=== PATIENT | male | born 1950 | race Caucasian/White ===

== ENCOUNTER 2020-04-21 12:46 | Inpatient (IN) | payer MEDICARE, SELFPAY ==
[2020-04-21] VITALS (15 sets, daily range): BP systolic 137–183; BP diastolic 72–94; PULSE 74–89; RESP 11–38; TEMP 36.6–37.2; O2SAT 95–100; BMI 27.9; BMI 28.5
--- NOTE | 2020-04-21 12:44 | DI.RAD.S_ITS ---
PROCEDURE: XR HIP W PEL IF DONE LT 2V INDICATIONS: trauma TECHNIQUE: 2 views of the hip were acquired. COMPARISON: None. FINDINGS: The left hip is not adequately evaluated on this examination. However, there is suggestion of a possible fracture other involving the femoral neck or intertrochanteric region. There is no dislocation or suspicious osseous lesion evident. The remainder of the image osseous structures of the included pelvis are grossly intact. However, evaluation for pelvic fractures on a single view is severely limited and inadequate. Degenerative changes of the pelvic joints are mild to moderate in nature. The overlying soft tissues are unremarkable. IMPRESSION: Probable nondisplaced proximal left femoral fracture. CT is recommended for further evaluation. Dictated by: Luis Andino M.D. on 04/21/2020 at 12:53 Approved by: Luis Andino M.D. on 04/21/2020 at 12:55
--- NOTE | 2020-04-21 12:51 | DI.RAD.S_ITS ---
PROCEDURE: XR CHEST 1V INDICATIONS: pre-op TECHNIQUE: One view of the chest was acquired. COMPARISON: None. FINDINGS: Surgical changes and devices: None. Lungs and pleura: Elevation of the right diaphragm is evident. There is no focal pulmonary consolidation, effusion, or definite pneumothorax. Mediastinum: Mediastinal contours appear normal. The heart appears enlarged. Bones and chest wall: No suspicious bony lesions. Overlying soft tissues appear unremarkable. IMPRESSION: Cardiomegaly without overt heart failure. No definite pneumonia. Dictated by: Luis Andino M.D. on 04/21/2020 at 12:53 Approved by: Luis Andino M.D. on 04/21/2020 at 12:53
--- NOTE | 2020-04-21 12:52 | ED_ITS ---
HPI - General Adult General Chief complaint: Fall Stated complaint: GLF,left hip pain Time Seen by Provider: 04/21/20 12:52 History of Present Illness HPI narrative: 69-year-old gentleman with a history of gastrointestinal cancer currently on chemotherapy, visiting [facility] and out on a fishing Charter today fell and landed on his left hip. Difficulty in getting [place] an into the emergency room. It has been approximately 6 hours that he has been laying flat with significant pain and muscle spasm. Left leg is slightly foreshortened and internally rotated with significant amount of pain. Related Data Home Medications Medication Instructions Recorded Confirmed lisinopril 10 mg PO DAILY 04/21/20 04/21/20 oxycodone 5 mg PO Q6H PRN 04/21/20 04/21/20 regorafenib [Stivarga] 80 mg PO DAILY 04/21/20 04/21/20 Allergies Allergy/AdvReac Type Severity Reaction Status Date / Time No Known Drug Allergies Allergy Verified 04/21/20 13:01 Review of Systems Review of Systems Narrative: Pertinent positive and negative findings as per HPI Given ketamine prior to transport due to the severe pain and difficulty in getting him out of the boat in into the rig. He is appropriately sedated and review of systems is somewhat limited however augmented by his Remainder of review of systems is otherwise unremarkable for Constitutional: Fevers, chills, weakness ENT: No sore throat, neck pain, ear pain CV: Chest pain, palpitations, dyspnea on exertion Respiratory: Cough, wheeze, dyspnea GI: Nausea, vomiting, diarrhea, change in bowel habits, black or bloody stools : Dysuria, hematuria, flank pain MS: Muscle weakness, numbness, joint swelling or warmth Skin: Rashes, nonhealing lesions Neuro: Syncope, dizziness, tingling Patient History Medical History (Updated 04/21/20 @ 15:06 by Perri Ceballos MD) GI cancer (Acute) Social History Smoking Status: Never smoker Exam Narrative Exam Narrative: General: Healthy appearing, significant pain with any motion or touching the left side this pelvis or leg. Sedated from pre-hospital transport medications. HEENT: Moist mucous membranes, normal sclera with reactive pupils, Neck: No JVD, supple Respiratory: Lungs are clear to auscultation, no wheezing no rales no rhonchi. Full and symmetrical air movement Cardiac: Regular rate and rhythm no murmurs no bruits Abdomen: Soft nontender good bowel tones, no flank pain Skin: Warm and dry, no rashes Neurologic: Grossly neurologically intact with no obvious asymmetries or abnormalities Extremities: Left leg internally rotated slightly foreshortened significantly tender. Neurovascularly intact distally Psych: Cooperative, sedated Initial Vital Signs Initial Vital Signs: Vital Signs Temperature 99 F 04/21/20 13:12 Pulse Rate 89 04/21/20 13:12 Respiratory Rate 20 04/21/20 13:12 Blood Pressure 183/94 H 04/21/20 13:12 Pulse Oximetry 99 04/21/20 13:12 Course Orders Ordered: ED Orders 04/21/20 12:05 Urinalysis and Microscopic Stat 04/21/20 12:44 XR hip w pel if done LT 2V Stat 04/21/20 12:51 XR chest 1V Stat EKG-12 Lead Stat 04/21/20 13:20 Complete Blood Count AUTO DIFF Stat Comprehensive Metabolic Panel Stat Creatine Kinase Stat Troponin I Stat Discontinued Medications Hydromorphone HCl (Dilaudid) 0.5 mg IV NOW ONE Stop: 04/21/20 12:47 Last Admin: 04/21/20 13:05 Dose: 0.5 mg Documented by: DILCIA Hydromorphone HCl (Dilaudid) 1 mg IV NOW ONE Stop: 04/21/20 14:54 Last Admin: 04/21/20 15:00 Dose: 1 mg Documented by: GREG Sodium Chloride (Normal Saline 0.9%) 1,000 mls @ 1,000 mls/hr IV BOLUS ONE Stop: 04/21/20 13:45 Last Admin: 04/21/20 13:05 Dose: 1,000 mls/hr Documented by: DILCIA Vital Signs Vital signs: Vital Signs - 8 hr 04/21/20 13:12 Temperature 99 F Pulse Rate 89 Respiratory Rate 20 Blood Pressure 183/94 H Pulse Oximetry 99 Medical Decision Making Medical Records Medical records reviewed: Yes I reviewed the patient's medical records. Lab Data Lab results reviewed: Yes I reviewed the patient's lab results. Result diagrams: 04/21/20 13:20 04/21/20 13:20 Labs: Lab Results 04/21/20 04/21/20 04/21/20 Range/Units 13:20 13:20 13:20 WBC 10.9 (4.5-11.0) X10^3/uL RBC 4.07 L (4.5-5.9) X10^6/uL Hgb 10.5 L (13.5-17.5) g/dL Hct 32.5 L (41-53) % MCV 79.7 L (80-100) fL MCH 25.8 L (26-34) PG MCHC 32.3 (30-36) % RDW 17.6 H (11.6-14.8) % Plt Count 285 (150-400) X10^3/uL Neut % (Auto) 87.9 H (50-75) % Lymph % (Auto) 5.8 L (25-40) % [place] % (Auto) 5.9 (3-14) % Eos % (Auto) 0.1 L (2-4) % Baso % (Auto) 0.3 (0-2) % Neut # (Auto) 9600 H (0142-3728) /uL Lymph # (Auto) 600 L (9342-0626) /uL [place] # (Auto) 600 (0-900) /uL Eos # (Auto) 0 (0-450) /uL Baso # (Auto) 0 (0-100) /uL Sodium 136 L (137-145) mmol/L Potassium 4.1 (3.4-5.1) mmol/L Chloride 104 (98-107) mmol/L Carbon Dioxide 25 (22-32) mmol/L BUN 12 (9-20) mg/dL Creatinine 0.79 (0.66-1.25) mg/dL Estimated GFR > 60.0 (>60) mL/min BUN/Creatinine Ratio 15.2 (6-22) Glucose 119 H (80-110) mg/dL Calcium 9.5 (8.4-10.2) mg/dL Total Bilirubin 0.7 (0.2-1.3) mg/dL AST 44 (17-59) IU/L ALT 16 (<50) IU/L Alkaline Phosphatase 63 (38-126) U/L Total Creatine Kinase 518 H (55-170) U/L Troponin I (0.01-0.034) ng/mL Total Protein 7.0 (6.3-8.2) g/dL Albumin 4.0 (3.5-5.0) g/dL Globulin 3.0 (1.7-4.1) g/dL Albumin/Globulin Ratio 1.3 (1.0-2.8) 06// Range/Units 13:20 WBC (4.5-11.0) X10^3/uL RBC (4.5-5.9) X10^6/uL Hgb (13.5-17.5) g/dL Hct (41-53) % MCV (80-100) fL MCH (26-34) PG MCHC (30-36) % RDW (11.6-14.8) % Plt Count (150-400) X10^3/uL Neut % (Auto) (50-75) % Lymph % (Auto) (25-40) % [place] % (Auto) (3-14) % Eos % (Auto) (2-4) % Baso % (Auto) (0-2) % Neut # (Auto) (8355-4200) /uL Lymph # (Auto) (5917-5419) /uL [place] # (Auto) (0-900) /uL Eos # (Auto) (0-450) /uL Baso # (Auto) (0-100) /uL Sodium (137-145) mmol/L Potassium (3.4-5.1) mmol/L Chloride (98-107) mmol/L Carbon Dioxide (22-32) mmol/L BUN (9-20) mg/dL Creatinine (0.66-1.25) mg/dL Estimated GFR (>60) mL/min BUN/Creatinine Ratio (6-22) Glucose (80-110) mg/dL Calcium (8.4-10.2) mg/dL Total Bilirubin (0.2-1.3) mg/dL AST (17-59) IU/L ALT (<50) IU/L Alkaline Phosphatase (38-126) U/L Total Creatine Kinase (55-170) U/L Troponin I < 0.012 (0.01-0.034) ng/mL Total Protein (6.3-8.2) g/dL Albumin (3.5-5.0) g/dL Globulin (1.7-4.1) g/dL Albumin/Globulin Ratio (1.0-2.8) Imaging Data Chest x-ray: Radiologist's Impression: IMPRESSION: Cardiomegaly without overt heart failure. No definite pneumonia. Dictated by: Luis Andino M.D. on 04/21/2020 at 12:53 X-ray hip: Radiologist's Impression: IMPRESSION: Probable nondisplaced proximal left femoral fracture. CT is recommended for further evaluation. Dictated by: Luis Andino M.D. on 04/21/2020 at 12:53 ECG Data Attestation: I personally reviewed and interpreted this ECG as follows: Interpretation: Sinus rhythm at 76 beats per minute Lateral ST T wave abnormalities without ST elevation Normal axis, normal intervals MDM Narrative Medical decision making narrative: 69-year-old gentleman out fishing fell landing on the left hip suffering a left femoral fracture. Mildly elevated CK however creatinine is appropriate. Minor ST T wave changes on EKG without chest pain or dyspnea. Troponin is currently pending Care is reviewed with Dr. Bowden, orthopedist. She would like to taken to the operating room this afternoon. Will order rapid Covid screening. Discharge Plan Departure Patient Disposition: Admitted As Inpatient Clinical Impression: Closed hip fracture Admit Date/Time: 04/21/20 14:59 Admit Provider: Nata Terrazas
[2020-04-21] MEDS: HYDROMORPHONE 0.5 MG INJ IV (13:05)
[2020-04-21] MEDS: SODIUM CHLORIDE 0.9% 1,000 ML 1000 ML IV (13:05)
[2020-04-21 13:30] LABS: Add Manual Diff / Slide Review NO; Basophils Absolute Auto 0 /uL (0-100); Basophils Percent Auto 0.3 % (0-2); Eosinophils Absolute Auto 0 /uL (0-450); Eosinophils Percent Auto 0.1 % (2-4); Hematocrit 32.5 % (41-53); Hemoglobin 10.5 g/dL (13.5-17.5); Lymphocytes Absolute Auto 600 /uL (1100-4500); Lymphocytes Percent Auto 5.8 % (25-40); Mean Corpuscular HGB Conc 32.3 % (30-36); Mean Corpuscular Hemoglobin 25.8 PG (26-34); Mean Corpuscular Volume 79.7 fL (80-100); Monocytes Absolute Auto 600 /uL (0-900); Monocytes Percent Auto 5.9 % (3-14); Neutrophils Absolute Auto 9600 /uL (1500-7000); Neutrophils Percent Auto 87.9 % (50-75); Platelet Count 285 X10^3/uL (150-400); Red Blood Cell Count 4.07 X10^6/uL (4.5-5.9); Red Cell Distribution Width 17.6 % (11.6-14.8); White Blood Cell Count 10.9 X10^3/uL (4.5-11.0)
[2020-04-21 13:41] LABS: Creatine Kinase 518 U/L (55-170)
[2020-04-21 13:43] LABS: Alanine Aminotransferase 16 IU/L (<50); Albumin Globulin Ratio 1.3 (1.0-2.8); Alkaline Phosphatase 63 U/L (38-126); Aspartate Aminotransferase 44 IU/L (17-59); BUN Creatinine Ratio 15.2 (6-22); Bilirubin Total 0.7 mg/dL (0.2-1.3); Blood Urea Nitrogen 12 mg/dL (9-20); Calcium 9.5 mg/dL (8.4-10.2); Carbon Dioxide 25 mmol/L (22-32); Chloride 104 mmol/L (98-107); Estimated Glomerular Filt Rate > 60.0 mL/min (>60); Glucose 119 mg/dL (80-110); HEMOLYSIS < 15 (0-50); Potassium 4.1 mmol/L (3.4-5.1); Sodium 136 mmol/L (137-145)
[2020-04-21 14:41] LABS: Troponin I < 0.012 ng/mL (0.01-0.034)
[2020-04-21 14:59] LABS: Bacteria Urine None Seen; RBC Urine None Seen (0-5/HPF); WBC Urine None Seen (0-5/HPF)
[2020-04-21 15:00] LABS: Appearance Urine UA CLEAR; Bilirubin Urine UA NEGATIVE (NEGATIVE); Color Urine UA YELLOW; Glucose Urine UA NEGATIVE (Negative); Ketones Urine UA NEGATIVE (NEGATIVE); Leukocyte Esterase Urine UA NEGATIVE (NEGATIVE); Nitrite Urine UA NEGATIVE (Negative); Occult Blood Urine UA NEGATIVE (Negative); Protein Urine UA NEGATIVE (Negative); Specific Gravity Urine UA 1.015 (1.000-1.035); Urobilinogen Urine UA 0.2 E.U./dL (0.2)
[2020-04-21] MEDS: HYDROMORPHONE 1 MG INJ IV (15:00)
[2020-04-21 15:07] LABS: Culture Indicated Urine Cult Not Indicated; Urine Comments Microscopic Normal
--- NOTE | 2020-04-21 15:18 | P.HP_ITS ---
History of Present Illness History of Present Illness Date Patient Seen: 04/21/20 Time Patient Seen: 15:21 Date of Onset of Symptoms: 04/21/20 Chief complaint: GLF,left hip pain Narrative: Tyler is a 69-year-old male visiting from [place]. He was on a week- long [employer] and shellfish expedition when he fell approximately 6/630 this morning. He states despite the fall the boat continued to participate in [place] and he finally made it back to shore approximately 6 hours later. He endorses left hip pain acute onset at the time of his fall. States he has had some minor arthritic hip pain but nothing significant in the past. No previous injuries. 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 He is here on vacation with his . Right now there plan flight home is April 29. He endorses muscle spasms and pain but no other extremity injuries. Pain is better controlled with rest and medications. Pain medication in the ER has helped him significantly. Denies loss of consciousness Patient History Medical History GI cancer (Acute) Family & Social History Safety & Behavioral: Feels Safe in Current Yes Environment Been Physically Hurt or No Threatened By a Person Tobacco & Substance use: Smoking Status Never smoker alcohol intake frequency 0-2 drinks per day Substance Use Type marijuana Meds Home Medications and Allergies Home Medications Medication Instructions Recorded Confirmed Type lisinopril 10 mg PO DAILY 04/21/20 04/21/20 History oxycodone 5 mg PO Q6H PRN 04/21/20 04/21/20 History regorafenib [Stivarga] 80 mg PO DAILY 04/21/20 04/21/20 History Allergies Allergy/AdvReac Type Severity Reaction Status Date / Time No Known Drug Allergies Allergy Verified 04/21/20 13:01 Review of Systems Review of Systems Narrative: History of GIST. ROS: Yes All systems reviewed with the patient and are negative except as otherwise documented Exam Vital Signs (past 8 hours): - 04/21/20 13:12 Temperature 99 F Pulse Rate 89 Respiratory Rate 20 Blood Pressure 183/94 H Pulse Oximetry 99 Oxygen Delivery Method Room Air Narrative Exam Narrative: General exam: Alert oriented no acute distress. Lying on the stretcher. Endorses pain at the left hip. HEENT exam: Normocephalic atraumatic. Respiratory: Lungs clear to auscultation bilaterally CV exam regular rate and rhythm Abdomen obese soft Extremity exam: Moves bilateral upper extremities full range of motion no tenderness to palpation. Sensation grossly intact to light touch. 5/5 strength Right lower extremity nontender to palpation no deformities sensation intact to light touch. Compartments soft. Demonstrates 5/5 dorsiflexion plantar flexion mild peripheral neuropathy Left lower extremity no deformity. Compartments are soft. Sensation intact to light touch. Other than similar peripheral neuropathy. Demonstrates 5/5 dorsiflexion plantar flexion. Tenderness at the left hip and groin. No wounds. Objective Imaging AP pelvis left lateral hip: My impression: AP and lateral pelvis and left femur demonstrate nondisplaced femoral neck fracture Radiologist's impression: IMPRESSION: Probable nondisplaced proximal left femoral fracture. CT is recommended for further evaluation. Dictated by: Luis Andino M.D. on 04/21/2020 at 12:53 Approved by: Luis Andino M.D. on 04/21/2020 at 12:55 Labs Result Diagrams: 04/21/20 13:20 04/21/20 13:20 Labs: Laboratory Results - last 24 hr 04/21/20 04/21/20 04/21/20 12:05 13:20 13:20 WBC 10.9 RBC 4.07 L Hgb 10.5 L Hct 32.5 L MCV 79.7 L MCH 25.8 L MCHC 32.3 RDW 17.6 H Plt Count 285 Neut % (Auto) 87.9 H Lymph % (Auto) 5.8 L [place] % (Auto) 5.9 Eos % (Auto) 0.1 L Baso % (Auto) 0.3 Neut # (Auto) 9600 H Lymph # (Auto) 600 L [place] # (Auto) 600 Eos # (Auto) 0 Baso # (Auto) 0 Sodium Potassium Chloride Carbon Dioxide BUN Creatinine Estimated GFR BUN/Creatinine Ratio Glucose Calcium Total Bilirubin AST ALT Alkaline Phosphatase Total Creatine Kinase 518 H Troponin I Total Protein Albumin Globulin Albumin/Globulin Ratio Urine Color Yellow Urine Appearance Clear Urine pH 7.0 Ur Specific [place] 1.015 Urine Protein Negative Urine Glucose (UA) Negative Urine Ketones Negative Urine Occult Blood Negative Urine Nitrate Negative Urine Bilirubin Negative Urine Urobilinogen 0.2 Ur Leukocyte Esterase Negative Urine RBC None seen Urine WBC None seen Urine Bacteria None seen Ur Culture Indicated? Cult not indicated Micro UA Comment Microscopic normal 04/21/20 04/21/20 13:20 13:20 WBC RBC Hgb Hct MCV MCH MCHC RDW Plt Count Neut % (Auto) Lymph % (Auto) [place] % (Auto) Eos % (Auto) Baso % (Auto) Neut # (Auto) Lymph # (Auto) [place] # (Auto) Eos # (Auto) Baso # (Auto) Sodium 136 L Potassium 4.1 Chloride 104 Carbon Dioxide 25 BUN 12 Creatinine 0.79 Estimated GFR > 60.0 BUN/Creatinine Ratio 15.2 Glucose 119 H Calcium 9.5 Total Bilirubin 0.7 AST 44 ALT 16 Alkaline Phosphatase 63 Total Creatine Kinase Troponin I < 0.012 Total Protein 7.0 Albumin 4.0 Globulin 3.0 Albumin/Globulin Ratio 1.3 Urine Color Urine Appearance Urine pH Ur Specific [place] Urine Protein Urine Glucose (UA) Urine Ketones Urine Occult Blood Urine Nitrate Urine Bilirubin Urine Urobilinogen Ur Leukocyte Esterase Urine RBC Urine WBC Urine Bacteria Ur Culture Indicated? Micro UA Comment Assessment & Plan Assessment and plan (1) Closed hip fracture: Qualifiers: Encounter type: initial encounter Laterality: left Qualified Code(s): S72.002A - Fracture of unspecified part of neck of left femur, initial encounter for closed fracture Status: Acute Assessment & Plan narrative: Patient has a nondisplaced left femoral neck fracture. Discussed options for surgery regarding nondisplaced fracture. This fracture pattern vertical and non impacted recommend surgical treatment this would be a pinning of the hip with cannulated screws. Discussed the risks benefits and alternatives to surgery. The risks and benefits of the procedure have been discussed with the patient even opportunity to ask questions. The risks of surgery include but are not limited to infection, malunion, nonunion, avascular necrosis, persistence of pain, damage to nerves and blood vessels, posttraumatic arthritis, need for additional procedures, DVT, PE, cardiopulmonary complications and . The patient expressed a thorough understanding of the risks and benefits of surgery and has elected to proceed. Consent was signed. Further discussed with the patient is on a medial modularity medication for his GI cancer. We will have him stop taking this and did not take it for at least 1 week after surgery. The surgery with the cannulated screws will have a small incision and will not be as large as other major surgery therefore if he needs to go back on this before 2 weeks then I think 1 week would be reasonable. He will be weightbear as tolerated with assistive devices postoperatively-he will be staying in the area of through the end of next week before going to [place] for a few days before his flight home. Postoperatively we will place him on Xarelto for 10 days then aspirin 81 mg b.i.d. for total of 4 weeks of prophylaxis after his hip fracture to reduce the risk of blood clots. COVID-19 COVID-19 status: Result pending Time Spent With Patient Time with patient: 15-24 minutes
[2020-04-21 15:34] LABS: COVID19 -Nasal RAPID Negative (Negative)
[2020-04-21] MEDS: LACTATED RINGERS 1,000 ML 125 ML IV ×2 (17:40→22:32)
[2020-04-21] MEDS: OXYCODONE IR 5 MG TABLET PO (17:56)
--- NOTE | 2020-04-21 18:32 | PM.OP.1 ---
Operative Date/Time/Diagnoses Date of procedure: 04/21/20 Time of procedure: 21:00 Pre-op diagnosis: Nondisplaced femoral neck fracture, left Left hip fracture Post-op diagnosis: other (Left intertrochanteric femur fracture) Procedure & Clinicians Procedure: Fixation left hip fracture Open reduction internal fixation left intertrochanteric femur fracture with dynamic hip screw CPT code 48730 Same procedure as scheduled: Yes Indications: Tyler is a 69-year-old male who is visiting from [place]. He fell while on a fishing charter approximately 6:00 a.m.. He was not able to get off the boat until over 6 hours later presented to [facility] in their afternoon. Was found to have a left hip fracture. Was indicated for surgery. The risks and benefits of the procedure have been discussed with the patient even opportunity to ask questions. The risks of surgery include but are not limited to infection, malunion, nonunion, persistence of pain, hardware complications failure, need for additional procedures, damage to nerves and blood vessels, posttraumatic arthritis, DVT, PE, cardiopulmonary complications and . The patient expressed a thorough understanding of the risks and benefits of surgery and has elected to proceed. Consent was signed. Surgeon: Nata Terrazas Click Yes if Unassisted: Yes Anesthesia Type: General Operative Notes Findings: Preoperative x-rays in the ER were limited but appeared to demonstrate nondisplaced distal femoral neck versus intertrochanteric hip fracture. On the fracture table in the operating room x-rays were taken better demonstrating the fracture which was a displaced intertrochanteric fracture. For the DHS set was opened and utilized with a 7.3 cannulated screw to stabilize the intertrochanteric fracture. Closure Type: primary Specimen(s): none sent Prosthetic devices, grafts, tissues, transplants, or devices: synthes DHS 135? 4 hole plate/105 mm screw. 4x 4.5 cortical screws in the DHS plate 7.3mm cannulated screw 95 mm Estimated Blood Loss (mL): 100 Blood products transfused: none Tourniquet time (min): 0 Procedure in detail: Patient was seen in the preoperative area and the site of surgery was marked and informed consent was confirmed. Final questions were answered. This was the left hip. The patient was brought to the operating room and placed on the operative table. General anesthesia was administered. The patient was positioned on the fracture table in the standard fashion with well-padded boots and perineal post. An SCD was worn on the contralateral leg. Formal time-out procedure took place confirming the patient's side and site of surgery and administration of appropriate preoperative antibiotics. All personnel were in agreement. The fluoroscopy unit was brought in and we made sure that we could get appropriate AP and lateral images of the hip. This did reveal that the fracture was a displaced intertrochanteric fracture without involvement of the lesser trochanter. The DHS tray and 7.3 Synthes cannulated screws tray were brought into the room. Reduction maneuver on the fracture table was completed this internal rotation and traction. Following this the extremity was prepped and draped in the standard sterile fashion. Landmarks on the AP and lateral marked out on the skin. An incision was made on the lateral thigh and the fracture was reduced and held in place with 3 K-wires. A pin was placed through the 135 degree guide determining the trajectory for the lag screw. This was verified center center in the head. The DHS drill was assembled. The wire was measured at 115, 10 mm was subtracted from this for a drilling depth to 105 mm. 105 mm screw was selected. There were no 2 hole plates in this trace over 4 hole plate was selected. The screw was placed and then the 4 hole plate slid over. There is initially a lot of resistance with this and some irregularity in the holding device of the screw to the guides therefore multiple attempts at screw recent during and plate fitting to the bone impaction were attempted. Eventually after switching out the screwdrivers and screw we obtained easy glide of the 4 hole plate into the glide hole. Plate was placed down to bone. And 4 bicortical screws were placed. Additional 7.3 95 mm screw was placed just proximal to the DHS for additional fixation and this large individual, and provide some anti rotation. AP and lateral imaging confirmed appropriate placement of the implants and no violation of the articular surface. The fracture maintained alignment. At this point the leg was taken through internal and external rotation obtaining visualization of the joint throughout the arc of motion under live fluoroscopy. All hardware was noted to be clear of the articular surface and there is no crepitus throughout the range of motion. I was satisfied with the alignment final images were obtained. The wound was irrigated and closed in layers with 2 O Vicryl suture deep and subcutaneous sutures and chelsi in the skin. Sterile dressing with Xeroform gauze and Tegaderm was placed. Surgical counts were correct. The drapes removed. The patient's lower extremity alignment was again checked on the table for leg length noted to be equal in the patella were facing upward appropriately with stable ligamentous exam in the limbs moving as a unit. No immediate complications were noted. The patient tolerated the procedure well and was taken to recovery room. Complications: none Post-operative Condition: stable Disposition: PACU Plan for aftercare: Weightbear as tolerated up to 50% x 4 weeks then weightbear as tolerated. With physical therapy on postop day 1. Will have Lovenox in hospital then Xarelto at discharge DVT prophylaxis x 10 days then may switch to aspirin 81 mg b.i.d. for a total of 6 weeks prophylaxis.
--- NOTE | 2020-04-21 18:39 | PC.NURSE ---
1830- Patient transported to PACU stable at time of transfer.
--- NOTE | 2020-04-21 19:10 | SUR.HOLD ---
Pt brought to PACU, awaiting surgery.
[2020-04-21] MEDS: GABAPENTIN 300 MG CAPSULE PO (19:50)
[2020-04-21] MEDS: ACETAMINOPHEN 325 MG TABLET 975 MG PO (19:50)
[2020-04-21] MEDS: CEFAZOLIN 2 GM/100 ML FROZ.PIGGY IV (20:44)
--- NOTE | 2020-04-21 21:43 | SUR.OPER ---
Supine on padded [place] table with bilateral legs secured in padded positioning boots and suspended in positioning spars, operative leg in traction per surgeon. Head on one pillow. Arm on non-operative side secured on padded armboard <90 degrees abduction. Arm on operative side padded and resting across chest then secured with tape over sheet. Padded perineal post in place per surgeon.
[2020-04-21] MEDS: BUPIVACAINE 0.25% W/ EPI 30 ML VIAL INJ (21:56)
[2020-04-22] VITALS (17 sets, daily range): BP systolic 103–145; BP diastolic 57–81; PULSE 71–87; RESP 10–29; TEMP 36.2–37.2; O2SAT 95–100
--- NOTE | 2020-04-22 | DI.RAD.S_ITS ---
PROCEDURE: XR HIP W PEL IF DONE LT 2V INDICATIONS: LEFT HIP ORIF TECHNIQUE: 12 operative fluoroscopic views of the hip were acquired. COMPARISON: None. FINDINGS: 12 operative fluoroscopic images demonstrate performance of ORIF of a comminuted fracture of the base of the left femoral neck and trochanteric region. IMPRESSION: Operative imaging utilized for left hip ORIF Dictated by: Winston Jean M.D. on 04/22/2020 at 8:26 Approved by: Winston Jean M.D. on 04/22/2020 at 8:29
[2020-04-22] MEDS: CEFAZOLIN VIAL 2 GM in SODIUM CHLORIDE 0.9% 100 ML 200 ML IV (00:36)
[2020-04-22] MEDS: LACTATED RINGERS 1,000 ML 125 ML IV (00:50)
--- NOTE | 2020-04-22 01:16 | DI.RAD.S_ITS ---
PROCEDURE: XR HIP W PEL IF DONE LT 2V INDICATIONS: Post operative left hip TECHNIQUE: AP lower pelvis with lateral view(s) of the left hip(s). COMPARISON: Preoperative films dated 04/21/20. FINDINGS: Interval ORIF of the left hip. There is distraction between the 2 major fragments across the trochanteric fracture measuring approximately 1.3 cm. IMPRESSION: Interval ORIF of the left hip. Distraction between major fracture fragments. Dictated by: Winston Jean M.D. on 04/22/2020 at 8:29 Approved by: Winston Jean M.D. on 04/22/2020 at 8:32
[2020-04-22] MEDS: fentaNYL 100 MCG/2 ML INJ IV ×2 (01:32→01:50)
--- NOTE | 2020-04-22 01:37 | SUR.PHASEI ---
Pt arrived to PACU, xray called, held up in OR will do EDUARDO, Dr. Terrazas made aware. Pt c/o pain to L hip, medicated with fentanyl. Falls back to sleep.
--- NOTE | 2020-04-22 01:45 | SUR.PHASEI ---
xray completed, Dr. Terrazas saw pictures.
--- NOTE | 2020-04-22 01:57 | SUR.PHASEI ---
Taking ice chips no nausea.
--- NOTE | 2020-04-22 02:20 | SUR.PHASEI ---
Pt transported up to room 231 on room air.
--- NOTE | 2020-04-22 02:37 | SUR.PHASEI ---
Pt left with MARILU Platt in stable condition.
[2020-04-22] MEDS: LACTATED RINGERS 1,000 ML 100 ML IV (02:43)
--- NOTE | 2020-04-22 02:48 | PC.NURSE ---
0200- Patient arrived to room 231 from PACU. Patient alert and oriented. VSS post op protocol initiated. 02 at 2l cannula. Left hip bulky dressing clean dry and intact. Lungs anterior clear. Voiding via urinal. Denies pain at this time. Will monitor.
--- NOTE | 2020-04-22 05:36 | PC.NURSE ---
Addendum entered by Stephanie Bolaños R.N. 04/22/20 15:34: Home medication for gastric CA sent to pharmacy, per this is expensive please dont lose. Addendum entered by Stephanie Bolaños R.N. 04/22/20 15:31: Pt doing well with ambulating with PT 1PA, Per , hotel at [facility] for tomorrow 04/23 at 4pm, Pt lives in [place] and has return flight home for 04/29. in room and d/c planning concerns. Original Note: Assumed care of Pt @ 0330 Resting comfortably with no s/sx of pain. Ice pack replaced, Urinal for voiding. 2L of o2 via NC. VSS. Using call light for needs, repositioning with assist of 1. BA active.
--- NOTE | 2020-04-22 07:43 | PM.PNPO.1 ---
Subjective Subjective Date Patient Seen: 04/22/20 Time Patient Seen: 07:43 Interval history: Postop day 1 left intertrochanteric fracture status post sliding hip screw. Lying in bed comfortably. Mild pain but states he declines last pain medication. No current complaints. Denies nausea or vomiting. No numbness no tingling. No fever Exam Vital Signs (past 8 hours): - 04/22/20 01:12 04/22/20 01:17 04/22/20 01:22 Temperature 98.9 F Pulse Rate 83 78 78 Respiratory Rate 13 16 15 Blood Pressure 116/81 114/73 117/71 Pulse Oximetry 99 99 98 04/22/20 01:26 04/22/20 01:33 04/22/20 01:37 Temperature Pulse Rate 80 79 74 Respiratory Rate 17 16 14 Blood Pressure 123/75 131/67 111/71 Pulse Oximetry 95 98 100 04/22/20 01:47 04/22/20 02:02 04/22/20 02:07 Temperature 97.9 F Pulse Rate 77 78 80 Respiratory Rate 10 L 16 20 Blood Pressure 103/67 116/74 107/63 Pulse Oximetry 99 100 99 04/22/20 02:30 04/22/20 02:59 04/22/20 03:00 Temperature 97.7 F Pulse Rate 81 72 71 Respiratory Rate 16 16 18 Blood Pressure 145/70 H 124/70 Pulse Oximetry 98 99 97 Oxygen Delivery Method Nasal Cannula Oxygen Flow Rate 2 Narrative Exam Narrative: General exam: Alert oriented no acute distress lying in bed HEENT exam normocephalic atraumatic Respiratory exam unlabored on room air Musculoskeletal exam: Left lower extremity dressing intact clean and dry. Compartments soft. Demonstrates dorsiflexion plantar flexion of the ankle. Sensation grossly intact to light touch. Brisk capillary refill Objective Labs Result Diagrams: 04/21/20 13:20 04/21/20 13:20 Labs: Laboratory Results - last 24 hr 04/21/20 04/21/20 04/21/20 12:05 13:20 13:20 WBC 10.9 RBC 4.07 L Hgb 10.5 L Hct 32.5 L MCV 79.7 L MCH 25.8 L MCHC 32.3 RDW 17.6 H Plt Count 285 Neut % (Auto) 87.9 H Lymph % (Auto) 5.8 L Kleberg % (Auto) 5.9 Eos % (Auto) 0.1 L Baso % (Auto) 0.3 Neut # (Auto) 9600 H Lymph # (Auto) 600 L Kleberg # (Auto) 600 Eos # (Auto) 0 Baso # (Auto) 0 Sodium Potassium Chloride Carbon Dioxide BUN Creatinine Estimated GFR BUN/Creatinine Ratio Glucose Calcium Total Bilirubin AST ALT Alkaline Phosphatase Total Creatine Kinase 518 H Troponin I Total Protein Albumin Globulin Albumin/Globulin Ratio Urine Color Yellow Urine Appearance Clear Urine pH 7.0 Ur Specific Hammond 1.015 Urine Protein Negative Urine Glucose (UA) Negative Urine Ketones Negative Urine Occult Blood Negative Urine Nitrate Negative Urine Bilirubin Negative Urine Urobilinogen 0.2 Ur Leukocyte Esterase Negative Urine RBC None seen Urine WBC None seen Urine Bacteria None seen Ur Culture Indicated? Cult not indicated Micro UA Comment Microscopic normal Nasal Screen MRSA (PCR) COVID-19 PCR 04/21/20 04/21/20 04/21/20 13:20 13:20 14:10 WBC RBC Hgb Hct MCV MCH MCHC RDW Plt Count Neut % (Auto) Lymph % (Auto) Kleberg % (Auto) Eos % (Auto) Baso % (Auto) Neut # (Auto) Lymph # (Auto) Kleberg # (Auto) Eos # (Auto) Baso # (Auto) Sodium 136 L Potassium 4.1 Chloride 104 Carbon Dioxide 25 BUN 12 Creatinine 0.79 Estimated GFR > 60.0 BUN/Creatinine Ratio 15.2 Glucose 119 H Calcium 9.5 Total Bilirubin 0.7 AST 44 ALT 16 Alkaline Phosphatase 63 Total Creatine Kinase Troponin I < 0.012 Total Protein 7.0 Albumin 4.0 Globulin 3.0 Albumin/Globulin Ratio 1.3 Urine Color Urine Appearance Urine pH Ur Specific Hammond Urine Protein Urine Glucose (UA) Urine Ketones Urine Occult Blood Urine Nitrate Urine Bilirubin Urine Urobilinogen Ur Leukocyte Esterase Urine RBC Urine WBC Urine Bacteria Ur Culture Indicated? Micro UA Comment Nasal Screen MRSA (PCR) COVID-19 PCR Negative 04/21/20 17:56 WBC RBC Hgb Hct MCV MCH MCHC RDW Plt Count Neut % (Auto) Lymph % (Auto) Kleberg % (Auto) Eos % (Auto) Baso % (Auto) Neut # (Auto) Lymph # (Auto) Kleberg # (Auto) Eos # (Auto) Baso # (Auto) Sodium Potassium Chloride Carbon Dioxide BUN Creatinine Estimated GFR BUN/Creatinine Ratio Glucose Calcium Total Bilirubin AST ALT Alkaline Phosphatase Total Creatine Kinase Troponin I Total Protein Albumin Globulin Albumin/Globulin Ratio Urine Color Urine Appearance Urine pH Ur Specific Hammond Urine Protein Urine Glucose (UA) Urine Ketones Urine Occult Blood Urine Nitrate Urine Bilirubin Urine Urobilinogen Ur Leukocyte Esterase Urine RBC Urine WBC Urine Bacteria Ur Culture Indicated? Micro UA Comment Nasal Screen MRSA (PCR) Negative for mrsa COVID-19 PCR Assessment & Plan Post-op Postoperative Procedures: Procedures Operation Date: 04/21/20 20:00 Actual Procedures Side Surgeon p ORIF Hip/DSH Cannulated Screws Nata Terrazas MD postop day 1. Status post sliding hip screw for left intertrochanteric hip fracture. Will work with physical therapy today 50% weight-bearing on left side. Discussed mechanism sliding hip screw and expected compression with weight and healing. Plan will stay in the hospital least overnight tonight for pain control mobility and physical therapy. Re-evaluate on Friday. Lovenox and SCDs for DVT prophylaxis in the hospital. At discharge will switched to Xarelto. Will finish 2 doses postoperative antibiotics. Quality VTE Deep Vein Thrombosis/Pulmonary Embolism Present on Admission: No
[2020-04-22] MEDS: CEFAZOLIN 2 GM/100 ML FROZ.PIGGY IV ×2 (08:59→15:27)
[2020-04-22] MEDS: ACETAMINOPHEN 325 MG TABLET 975 MG PO ×3 (09:04→20:57)
[2020-04-22] MEDS: ENOXAPARIN 40 MG/0.4 ML SYRINGE SUBCUT (09:04)
[2020-04-22] MEDS: lisinopriL 10 MG TABLET PO (09:05)
[2020-04-22] MEDS: OXYCODONE IR 5 MG TABLET PO ×2 (09:12→09:58)
--- NOTE | 2020-04-22 11:51 | PT.IIE ---
Current Diagnoses Fracture of unspecified part of neck of left femur, initial encounter for closed fracture (04/21/20) Surgery Performed Operation Date: 04/21/20 20:00 Actual Procedures p ORIF Hip/DSH Cannulated Screws - Nata Terrazas MD Medical History (Last Reviewed 04/21/20 @ 15:24 by Nata Terrazas MD) GI cancer (Acute) Physical Therapy Inpatient Evaluation/Re-Eval M1 PT/OT-IP Prior Functional Status Start: 04/22/20 13:05 Freq: NEEDED Status: Active Protocol: Document 04/22/20 11:51 DLM (Rec: 04/22/20 14:45 DLM [email or web address]) Medical Review Prior Functional Status Medical History Reviewed Yes Diet/Fluid Consistency Regular Communication WNL Mobility and Gait Independent, no device, active , rides bike and swims. He regularly does stretching at home often on the floor. Activities of Daily Living and IADL's Independent Prior Functional Level (Other details) Lives in [place], was in [employer], plans to fly home 04/29/20, has a place to stay in [place] 04/27-04/29, is renting a car Social History Household Members spouse Living Arrangements House Number of Floors (Floors) Two Floors Number of Stairs To Enter/Railing? 13 with bilateral rails, can only reach one rail at a time Additional Social History Comment Home office on lower level of house with apt, no bed currently on this level but pt thinks he could have one moved to that level, large bathroom on lower/apt level. Most of pt's normal living area is on an upper level that is reached by going up 13 steps outside. M2 PT-IP Current Condition Start: 04/22/20 13:05 Freq: NEEDED Status: Active Protocol: Document 04/22/20 11:51 DLM (Rec: 04/22/20 14:45 DLM [email or web address]) Physical Therapy Current Condition Current Condition Evaluation Date 04/22/20 Treatment Diagnosis left femur fx, ORIF with dynamic screw Onset Date 04/21/20 Weight Bearing Status Weight Bearing Status Partial Weight Bearing Allowed Weight Bearing Amount (enter % 50% on left LE for 4 weeks or #) (%) M3 PT-IP Subjective Start: 04/22/20 13:05 Freq: NEEDED Status: Active Protocol: Document 04/22/20 11:51 DLM (Rec: 04/22/20 14:45 DLM [email or web address]) Subjective Physical Therapy Visit Type Type Initial Evaluation Visit Start Time 10:30 Visit Stop Time 11:51 Total Visit Minutes 60 Notes interruptions with nursing care and phone call from his Number of SENIOR INDUSTRIAL ENGINEER Visits 0 Physical Therapy Visit Comments Patient Comments He is sore in his thigh near incisional area Patient Goals be able to board a plane to go home 04/29/20 Therapy Pain Assessment Pain When Pain Assessed During Mobility Pain Present Pain Present Pain Reported Location Left Hip Intensity 1 Scale Used Numeric (0 - 10) Description Aching Pain Behaviors Wincing Pain Management Techniques Apply Cold,Re-positioning M4 PT-IP Mobility and Gait Start: 04/22/20 13:05 Freq: NEEDED Status: Active Protocol: Document 04/22/20 11:51 DLM (Rec: 04/22/20 14:45 DLM [email or web address]) PT-Bed Mobility Assessment Supine to Sit Supine to Sit Standby Assistance Sit to Supine Sit to Supine Standby Assistance Scooting Scooting to Edge of Bed Independent PT-Transfer Assessment Sit to and From Stand Sit to and from Stand Standby Assistance,Contact Guard Assistance,Use of Upper Extremities Equipment Transfer Assistive Device Gait Belt,Front Wheeled Walker Transfers Transfer Destination Bed,Chair Transfer Technique Stand Step Pivot Transfer Ability Level of Assist Contact Guard Assistance,Use of Upper Extremities Comments Mobility Comments Pt got up in recliner with nursing this AM, pt returned to bed after this visit due to fatigue and feels he needs sleep. Gait Assessment Gait Gait Assistance Required: Contact Guard Assist Distance (Feet) 12 Able to Maintain Weight Bearing Status Yes During Gait Assistive Devices Assistive Device Gait Belt,Front Wheeled Walker Gait Deviations General Gait Pattern Antalgic Factors Limiting Gait Function Factors Limiting Gait Function Decreased Activity Tolerance, Decreased Strength,Pain Comments Gait Comments pt did 3 trials of gait with fWW, his technique improved with training, he shows good use of his UE's during sit- stand PT-Balance Assessment Sitting Balance and Reactions Static Sitting Balance Ability Good Dynamic Sitting Balance Ability Good Standing Balance and Reactions Static Standing Balance Ability Good Dynamic Standing Balance Ability Fair Device Used FWW M5 PT-IP Objective Assessments Start: 04/22/20 13:05 Freq: NEEDED Status: Active Protocol: Document 04/22/20 11:51 DLM (Rec: 04/22/20 14:45 DLM [email or web address]) Orientation Orientation/Cognition Level of Alertness Alert Orientation Name,Age,Birthday,Month,Date, Year,Day of Week,Place, Situation Language Function Ability No Deficits Noted Safety Awareness Understands Safety Issues Memory Description No Deficits Noted Gross Range of Motion Upper Extremity ROM Assessment Within Functional Limits Lower Extremity ROM Assessment Right Impaired Impairments pain limited hip motions and knee flexion greater than 90 degrees Strength Upper Extremity Strength Assessment Within Functional Limits Lower Extremity Strength Assessment Left Impaired Hip flexion 2+/5 Knee ext 3+/5 Ankle DF 4+/5, mild soreness reported in ankle Coordination Assessment Gross Coordination Gross Coordination WNL Sensation Assessment Sensation Gross Sensation WNL Muscle Tone Muscle Tone WNL Yes M6 PT-IP Treatment Start: 04/22/20 13:05 Freq: NEEDED Status: Active Protocol: Document 04/22/20 11:51 DLM (Rec: 04/22/20 14:45 DLM [email or web address]) Physical Therapy Treatment Exercises Exercises Ankle Pumps Education Education Provided Precautions,Weight Bearing Status,Safety Equipment Issued Equipment Type and Company FWW and crutches, pt 6ft tall M7 PT-IP Assessment and Plan Start: 04/22/20 13:05 Freq: NEEDED Status: Active Protocol: Document 04/22/20 11:51 DLM (Rec: 04/22/20 14:45 DLM [email or web address]) PT Summary Assessment and Plan Potential Rehabilitation Potential Excellent Status of Condition at Evaluation Evolving Summary Impairments Pain,ROM,Strength,Balance,Bed Mobility,Transfers,Gait, Activity Tolerance Assessment Summary Tyler is progressing well post- op day one. He tolerated short distances of gait in his room with fWW. Pt pale today but no reports of dizziness/light- headed during mobility. Pt fatigues quickly with gait. Pt 's home is in [place] and he has a flight 04/29 that he wants to be ready for to return home. His is in town but not present for this visit. He is able to maintain 50% or less during gait with a FWW. He demonstrates good safety awareness. Will continue to plan for discharge home with his to assist. He will need fWW before discharge (and crutches if he plans to go to second floor of his home. Goals Bed Mobility Goal Independent Transfer Goal Independent,Front Wheeled Walker Gait Goal Independent,Front Wheel Walker Gait Distance 100 feet Other Goals up and down 6 steps with rail and crutch, 50% WB on left Days to Meet Goals 3 Frequency of Treatment Frequency Of Treatment Twice a Day Treatment Plan Physical Therapy Treatment Plan Bed Mobility Training,Transfer Training,Gait Training, Therapeutic Exercise,Balance Retraining,Post Op Education, Discharge Planning,Hot or Cold Pack,Neuromuscular Re-ed Other Recommendations and Next Treatment help problem solve home Focus situation Recommendations To Nursing Amount of Assist Needed 1 Person Assist Discharge Recommendations PT Discharge Recommendations Home with Assistance Transportation Needs at Discharge Private Vehicle
--- NOTE | 2020-04-22 15:07 | CM.DANOTE ---
Discharge Planning/Care Management DCP: assessment: case received, EMR reviewed and including the PT notes for today. Pt's room is in the ICU setting and this area has been exceedingly packed with ICU, ER and Ambulance staff much of the day because of emergent care of pt in room right next to this pt. Decision made to defer meeting pt until tomorrow. Pt is a 69 year old male who admitted for a ground level fall on a fishing boat charter excursion. Sustained fractured L hip. Admitted to Surgeon Dr. Jeffry Terrazas who took him for ORIF last evening. Pt is noted to be at baseline very active and independent. He is on oral chemotherapy treatment. Payer: commercial insurance and Medicare. Admission status: INPT. Pt lives in [place] with his . Both are here for this trip and with plan to fly back home on April 29. PT reports pt's will rent a car a d/c and they plan to stay in [place] April 27- and catch the flight from there. Pt will need FWW..will check to see if this will be issued here from the PT consignment closet. OT is note ordered. Will followup to see it this might be helpful. Thus far pt's has not been part of caregiver training. P: discuss tomorrow in Team Rounds, meet with pt for further assessment of d/c issues and options. CM Discharge Assessment Start: 04/22/20 15:04 Freq: Status: Active Protocol: Document 04/22/20 15:06 ITV (Rec: 04/22/20 15:07 ITV [id number]) Discharge Planning Assessment Advance Directives? No History Provided By Medical Record Prior Living Arrangements House Household Members spouse Independent with ADL's Yes Is patient alert and oriented? Yes Review Status In Process
--- NOTE | 2020-04-22 15:23 | PT.IPTN ---
Current Diagnoses Fracture of unspecified part of neck of left femur, initial encounter for closed fracture (04/21/20) Surgery Performed Operation Date: 04/21/20 20:00 Actual Procedures p ORIF Hip/DSH Cannulated Screws - Nata Terrazas MD Physical Therapy Treatment Note M2 PT-IP Current Condition Start: 04/22/20 13:05 Freq: NEEDED Status: Active Protocol: Document 04/22/20 11:51 DLM (Rec: 04/22/20 14:45 DLM [email or web address]) Physical Therapy Current Condition Current Condition Evaluation Date 04/22/20 Treatment Diagnosis left femur fx, ORIF with dynamic screw Onset Date 04/21/20 Weight Bearing Status Weight Bearing Status Partial Weight Bearing Allowed Weight Bearing Amount (enter % 50% on left LE for 4 weeks or #) (%) M3 PT-IP Subjective Start: 04/22/20 13:05 Freq: NEEDED Status: Active Protocol: Document 04/22/20 14:40 KS (Rec: 04/22/20 16:28 KS [id number]) Subjective Physical Therapy Visit Type Type Treatment Note Visit Start Time 14:40 Visit Stop Time 15:23 Total Visit Minutes 43 Number of COMPLEX HUMAN RESOURCES MANAGER Visits 1 Physical Therapy Visit Comments Patient Comments Pt agreeable to work w/ therapy. Pts present during treatment. Therapy Pain Assessment Pain When Pain Assessed During Mobility Pain Present Pain Present Pain Reported Location Left Hip Intensity 1 Scale Used Numeric (0 - 10) Description Aching Pain Behaviors Wincing Pain Management Techniques Apply Cold,Re-positioning M4 PT-IP Mobility and Gait Start: 04/22/20 13:05 Freq: NEEDED Status: Active Protocol: Document 04/22/20 14:40 KS (Rec: 04/22/20 16:28 KS [id number]) PT-Bed Mobility Assessment Supine to Sit Supine to Sit Standby Assistance Sit to Supine Sit to Supine Standby Assistance Scooting Scooting to Edge of Bed Independent PT-Transfer Assessment Sit to and From Stand Sit to and from Stand Standby Assistance,Contact Guard Assistance,Use of Upper Extremities Equipment Transfer Assistive Device Gait Belt,Front Wheeled Walker Transfers Transfer Destination Bed,Chair Transfer Technique pt ambulated w/ FWW Transfer Ability Level of Assist Contact Guard Assistance,Use of Upper Extremities Comments Mobility Comments Pt was in bed upon arrival from therapy. Pt performed 1x10 bilateral ankle pumps, quad sets, glute sets, and heel slides. SBA for sup<>sit and scooting EOB. Pt then sit< >stand SBA to CGA w/ FWW and cues for hand placement. Pt ambulated ~15 ft w/ FWW to chair and stand<>sit SBA, seated rest break 3 min. CGA sit<>stand w/ FWW w/ cues to adhere to WB status, pt then ambulated additional 15 ft to return to bed. Min A for sit<> sup for LE guidance into bed, I for repositioning in bed. Pt left in bed w/ all needs in reach. Gait Assessment Gait Gait Assistance Required: Contact Guard Assist Distance (Feet) 30 Able to Maintain Weight Bearing Status Yes During Gait Assistive Devices Assistive Device Gait Belt,Front Wheeled Walker Gait Deviations General Gait Pattern Antalgic Factors Limiting Gait Function Factors Limiting Gait Function Decreased Activity Tolerance, Decreased Strength,Pain Comments Gait Comments Pt ambulated ~30 ft in room w/ FWW and CGA. Pt able to adhere to PWB by using BUE. Pts gait and technique improved on second bout of ambulation. PT-Balance Assessment Sitting Balance and Reactions Static Sitting Balance Ability Good Dynamic Sitting Balance Ability Good Standing Balance and Reactions Static Standing Balance Ability Good Dynamic Standing Balance Ability Fair Device Used FWW M5 PT-IP Objective Assessments Start: 04/22/20 13:05 Freq: NEEDED Status: Active Protocol: Document 04/22/20 11:51 DLM (Rec: 04/22/20 14:45 DLM [email or web address]) Orientation Orientation/Cognition Level of Alertness Alert Orientation Name,Age,Birthday,Month,Date, Year,Day of Week,Place, Situation Language Function Ability No Deficits Noted Safety Awareness Understands Safety Issues Memory Description No Deficits Noted Gross Range of Motion Upper Extremity ROM Assessment Within Functional Limits Lower Extremity ROM Assessment Right Impaired Impairments pain limited hip motions and knee flexion greater than 90 degrees Strength Upper Extremity Strength Assessment Within Functional Limits Lower Extremity Strength Assessment Left Impaired Hip flexion 2+/5 Knee ext 3+/5 Ankle DF 4+/5, mild soreness reported in ankle Coordination Assessment Gross Coordination Gross Coordination WNL Sensation Assessment Sensation Gross Sensation WNL Muscle Tone Muscle Tone WNL Yes M6 PT-IP Treatment Start: 04/22/20 13:05 Freq: NEEDED Status: Active Protocol: Document 04/22/20 14:40 KS (Rec: 04/22/20 16:28 KS [id number]) Physical Therapy Treatment Education Education Provided Precautions,Weight Bearing Status,Safety Equipment Issued Equipment Type and Company FWW and crutches, pt 6ft tall M7 PT-IP Assessment and Plan Start: 04/22/20 13:05 Freq: NEEDED Status: Active Protocol: Document 04/22/20 14:40 KS (Rec: 04/22/20 16:28 KS [id number]) PT Summary Assessment and Plan Potential Rehabilitation Potential Excellent Status of Condition at Evaluation Evolving Summary Impairments Pain,ROM,Strength,Balance,Bed Mobility,Transfers,Gait, Activity Tolerance Progress Towards Goals Progressing Toward Goals Assessment Summary Pt able to tolerate LE strengthening exercises well, SBA for bed mobility, SBA to CGA for transfers, CGA for ambulation. Pt sometimes requires cues for sequencing during transfers and ambulation, but improves w/ distance. Good use of BUE and FWW, able to maintain 50% PWB during ambulation. Will need FWW and crutches dispensed before d/c. Goals Bed Mobility Goal Independent Transfer Goal Independent,Front Wheeled Walker Gait Goal Independent,Front Wheel Walker Gait Distance 100 feet Other Goals up and down 6 steps with rail and crutch, 50% WB on left Days to Meet Goals 3 Frequency of Treatment Frequency Of Treatment Twice a Day Treatment Plan Physical Therapy Treatment Plan Bed Mobility Training,Transfer Training,Gait Training, Therapeutic Exercise,Balance Retraining,Post Op Education, Discharge Planning,Hot or Cold Pack,Neuromuscular Re-ed Other Recommendations and Next Treatment help problem solve home Focus situation, FWW and crutches for d/c Recommendations To Nursing Amount of Assist Needed 1 Person Assist Discharge Recommendations PT Discharge Recommendations Home with Assistance Transportation Needs at Discharge Private Vehicle
--- NOTE | 2020-04-22 17:05 | OT.IP.EVAL ---
Current Diagnoses Fracture of unspecified part of neck of left femur, initial encounter for closed fracture (04/21/20) Surgery Performed Operation Date: 04/21/20 20:00 Actual Procedures p ORIF Hip/DSH Cannulated Screws - Nata Terrazas MD Past Medical History (Last Reviewed 04/21/20 @ 15:24 by Nata Terrazas MD) GI cancer (Acute) Occupational Therapy Inpatient Evaluation/Re-Eval M1 PT/OT-IP Prior Functional Status Start: 04/22/20 13:05 Freq: NEEDED Status: Active Protocol: Document 04/22/20 17:07 CGR (Rec: 04/22/20 17:33 CGR [email or web address]) Medical Review Prior Functional Status Medical History Reviewed Yes Diet/Fluid Consistency Regular Communication WNL Mobility and Gait Independent, no device, active , rides bike and swims. He regularly does stretching at home often on the floor. Activities of Daily Living and IADL's Independent Prior Functional Level (Other details) Lives in [place], was in [place], plans to fly home 04/29/20, has a place to stay in [place] 04/27-04/29, is renting a car Social History Household Members spouse Living Arrangements House Number of Floors (Floors) Two Floors Number of Stairs To Enter/Railing? Pt has an apartment on the first floor but no bed. 13 steps to get to the main living level with wide B rails . 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 M2 OT-IP Current Condition Start: 04/22/20 17:07 Freq: Status: Active Protocol: Document 04/22/20 17:07 CGR (Rec: 04/22/20 17:33 CGR [email or web address]) Occupational Therapy Current Condition Current Condition Evaluation Date 04/22/20 Treatment Diagnosis Fall with L hip fx s/p 04/21 sliding hip screw ORIF Diagnosis Onset Date 04/21/20 Weight Bearing Status Weight Bearing Status Partial Weight Bearing Allowed Weight Bearing Amount (enter % 50% or #) (%) M3 OT- IP Subjective and Pain Start: 04/22/20 17:07 Freq: Status: Active Protocol: Document 04/22/20 17:07 CGR (Rec: 04/22/20 17:33 CGR [email or web address]) OT- Subjective Occupational Therapy Visit Type Type Initial Evaluation Visit Start Time 15:27 Visit Stop Time 17:05 Total Visit Minutes 98 OT Pain Assessment Pain When Pain Assessed At Rest Pain Present Pain Present Pain Reported Location Left Hip Intensity 1 Scale Used Numeric (0 - 10) Management Techniques Modification of Treatment,Re- positioning,Timing of Activity with Medications M4 OT- IP ADL's Start: 04/22/20 17:07 Freq: Status: Active Protocol: Document 04/22/20 17:07 CGR (Rec: 04/22/20 17:33 CGR [email or web address]) OT [id number] Comments OT Self-Feeding Comments not meal time OT ADL-Grooming Comments OT Grooming Comments not performed OT ADL-Oral Care Comments Oral Care Comments not performed OT ADL-Dressing Comments OT Dressing Comments Demonstrated LB dressing with hip kit and provided hip kit for pt. Pt declined to perform but actively watched demonstration. OT ADL-Toileting General Evaluation Toileting Ability Standby Assistance Areas Needing Assistance Manage Clothing Comments OT Toileting Comments Pt was able to sit on toilet and simulate toileting. Also perform standing simulation for urination using walker over toilet. OT ADL-Bathing Comments OT Bathing Comments Demonstrated shower transfer but pt declined to perform. M5 OT- IP IADL's Start: 04/22/20 17:07 Freq: Status: Active Protocol: Document 04/22/20 17:07 CGR (Rec: 04/22/20 17:33 CGR [email or web address]) OT-Instrumental Activities of Daily Living Deficits IADL Deficits Identified No Deficits Home Safety Awareness Awareness of Need for Assistance at Home Good Awareness Ability to Problem Solve Emergency Able to Problem Solve Situations Medication Management Medication Management No Deficits Identified Money Management Money Management No Deficits Identified Meal Preparation Meal Preparation Caregiver Provides Assist Home Performance Consultant Home Performance Consultant Caregiver Provides Assist Driving Driving Comments 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 M6 OT- IP Functional Cognition Start: 04/22/20 17:07 Freq: Status: Active Protocol: Document 04/22/20 17:07 CGR (Rec: 06/27/20 17:33 CGR [email or web address]) Cognitive Factors Limiting Selfcare Function Cognitive Ability Level of Alertness Alert Patient Orientation Name,Age,Birthday,Month,Date, Year,Day of Week,Place, Situation Attention Span Ability Capable of Focused Attention, Capable of Sustained Attention Ability to Follow Commands Able to Follow Multi-Step Commands Memory Description No Deficits Noted Safety Awareness No Deficits Noted Problem Solving Ability No deficits Noted OT- Vision and Hearing OT- Hearing Assessment OT- Hearing Assessment WFL OT- Vision Assessment Visual Acuity WFL Visual Attentiveness WFL Occular Pursuits WFL Visual Convergence WFL M7 OT- IP Mobility and Balance Start: 04/22/20 17:07 Freq: Status: Active Protocol: Document 04/22/20 17:07 CGR (Rec: 04/22/20 17:33 CGR [email or web address]) OT- Bed Mobility Assessment Supine to Sit Supine to Sit Assist Minimal Assistance Sit to Supine Sit to Supine Assist Contact Guard Assistance Scooting Scooting to Edge of Bed Standby Assistance OT-Transfer Assessment Sit to and From Stand Sit to and from Stand Standby Assistance,Contact Guard Assistance Transfers Transfer Ability Standby Assistance,Contact Guard Assistance Technique Transfer Destination Bed,Toilet Transfer Technique Stand Step Pivot Devices Transfer Assistive Devices Gait Belt,Front Wheeled Walker OT- Gait Assessment Gait Gait Assistance Required: Contact Guard Assist Assistive Devices Assistive Device Gait Belt,Front Wheeled Walker OT- Balance Assessment Sitting Balance and Reactions Static Sitting Balance Ability Good Dynamic Sitting Balance Ability Fair M8 OT- IP Objective Assessments Start: 04/22/20 17:07 Freq: Status: Active Protocol: Document 04/22/20 17:07 CGR (Rec: 04/22/20 17:33 CGR [email or web address]) OT Gross Range of Motion Upper Extremity Range of Motion Assessment Within Functional Limits OT Strength Upper Extremity Strength Assessment Within Functional Limits Comments Strength Comments 5/5 OT- Coordination Assessment Upper Extremity Finger to Nose Test Within Functional Limits Finger Tapping Test Within Functional Limits OT-Muscle Tone Assessment Muscle Tone WNL Yes OT Sensation Assessment Edema Edema Present Edema Comments Noted to the LLE M9 OT- IP Assessment and Plan Start: 04/22/20 17:07 Freq: Status: Active Protocol: Document 04/22/20 17:07 CGR (Rec: 04/22/20 17:33 CGR [email or web address]) OT Summary Assessment and Plan Potential Rehabilitation Potential Excellent Analytic Complexity at Evaluation Low Summary OT Impairments Pain,Balance,Functional Mobility,Dressing,Toileting, Bathing,Toilet Transfers, Shower Transfers,Activity Tolerance Progress Towards Goals Progressing Toward Goals Assessment Summary Pt presents as a low complexity evaluation s/p fall and hip fx. Pt underwent 03/21 ORIF with sliding hip screw. Pt is now 50% WB to the LLE. Pt is progressing well with mobility and ADLs. Pt educated on home safety, ADLs with a new hip sx, and use of the walker. Pt will continue to benefit from OT services while hospitalized. Pt is likely safe for discharge home when medically stable. Goals Grooming Goal Independent Dressing Goal Independent Toileting Goal Independent Bathing Goal Independent Toilet Transfer Goal Independent Shower Transfer Goal Independent Days to Meet Goals 3 Frequency of Treatment Frequency Of Treatment Once a Day Treatment Plan OT Treatment Plan ADL Training,Functional Mobility,Patient/Family Education,Discharge Planning Other Treatment Recommendations and Next shower Treatment Focus Discharge Recommendations OT Discharge Recommendations Home with Assistance Home Equipment Needs tub transfer bench, walker, hip kit (provided) Transportation Needs at Discharge Private Vehicle
[2020-04-22] MEDS: DOCUSATE 100 MG CAPSULE PO (20:57)
[2020-04-22] MEDS: OXYCODONE IR 10 MG TABLET PO (20:57)
[2020-04-23 00:06] VITALS: BP 111/57; PULSE 80; RESP 16; TEMP 36.5; O2SAT 96
[2020-04-23] MEDS: OXYCODONE IR 5 MG TABLET PO (02:28)
[2020-04-23 05:00] VITALS: BP 111/56; PULSE 77; RESP 16; TEMP 37.1; O2SAT 96
[2020-04-23] MEDS: OXYCODONE IR 10 MG TABLET PO ×4 (05:20→23:44)
[2020-04-23 05:42] LABS: Hemoglobin 7.7 g/dL (13.5-17.5); Mean Corpuscular HGB Conc 32.5 % (30-36); Mean Corpuscular Hemoglobin 25.8 PG (26-34); Mean Corpuscular Volume 79.6 fL (80-100); Platelet Count 272 X10^3/uL (150-400); Red Blood Cell Count 2.99 X10^6/uL (4.5-5.9); Red Cell Distribution Width 17.7 % (11.6-14.8); White Blood Cell Count 9.9 X10^3/uL (4.5-11.0)
[2020-04-23 06:17] LABS: Hematocrit 23.8 % (41-53)
[2020-04-23 07:33] VITALS: BP 116/60; RESP 20; TEMP 36.6; O2SAT 97
--- NOTE | 2020-04-23 09:30 | PM.PNPO.1 ---
Subjective Subjective Date Patient Seen: 04/23/20 Time Patient Seen: 09:30 Interval history: Day 2 left intertrochanteric hip fracture with DHS. Lying in bed. Recently moved from chair to bed. Work with physical therapy yesterday and did well. Feeling more sore today. A little weak. Having some cramping. Denies nausea or vomiting. Only took oral pain medications 2 or 3 times yesterday. No numbness or tingling. Exam Vital Signs (past 8 hours): - 04/23/20 05:00 04/23/20 07:33 Temperature 98.7 F 97.8 F Pulse Rate 77 Respiratory Rate 16 20 Blood Pressure 111/56 L 116/60 Pulse Oximetry 96 97 Oxygen Delivery Method Room Air Oxygen Flow Rate 0 Narrative Exam Narrative: General exam is alert oriented male in no acute distress lying in bed. Respiratory exam unlabored on room air CV exam regular rate and rhythm HEENT exam normocephalic atraumatic Musculoskeletal examination: Left lower extremity dressing in place clean dry and intact. Thigh and lower extremity compartments soft. Some weakness in hip flexion. Complains of soreness in his thigh. Symmetric rotation. Demonstrates 5/5 dorsiflexion plantar flexion. Sensation grossly intact to light touch. Brisk capillary refill. Objective Labs Result Diagrams: 04/23/20 04:51 04/21/20 13:20 Labs: Laboratory Results - last 24 hr 04/23/20 04:51 WBC 9.9 RBC 2.99 L Hgb 7.7 L Hct 23.8 L MCV 79.6 L MCH 25.8 L MCHC 32.5 RDW 17.7 H Plt Count 272 Assessment & Plan Post-op Assessment and plan (1) Acute blood loss anemia: Postoperative Procedures: Procedures Operation Date: 04/21/20 20:00 Actual Procedures Side Surgeon p ORIF Hip/DSH Cannulated Screws Nata Terrazas MD Postop day 2 left intertrochanteric hip fracture. Doing well. Weightbear as tolerated (ie: 50%) on left lower extremity. Mobilize with physical therapy. Lovenox for DVT prophylaxis. Finished 2 doses postoperative antibiotics. Will work on taking pain medications regularly throughout the day. Will add an anti spasmodic. Acute blood loss anemia-postoperative. Will add iron. And monitor. Vital signs are stable. Transfusion criteria would be vital sign instability and hemoglobin below 7. Will recheck tomorrow. Will continue Lovenox for DVT prophylaxis and will not switch to Xarelto until anemia stabilized. Patient will require continued inpatient admission related to his hip fracture pain control and acute blood loss anemia. Vitamin-D and calcium for metabolic bone health If labs stabilized tomorrow and pain controlled consider discharge. Will plan for follow-up [facility] with Dr. Terrazas April 26 Patient is going to consider extending his stay in the area rather than flying back to [place] as scheduled on April 29. Discussed that I certainly think this is reasonable and recommended if it is a possibility for him. Bowel regimen Colace, MiraLax available as needed Quality VTE Deep Vein Thrombosis/Pulmonary Embolism Present on Admission: No
[2020-04-23] MEDS: ACETAMINOPHEN 325 MG TABLET 975 MG PO ×3 (09:37→21:11)
[2020-04-23] MEDS: DOCUSATE 100 MG CAPSULE PO ×2 (09:38→21:11)
[2020-04-23] MEDS: CHOLECALCIFEROL (VITAMIN D3) 1,000 UNIT TABLET 2000 UNIT PO (09:38)
[2020-04-23] MEDS: CALCIUM CARBONATE 600 MG TABLET 1200 MG PO (09:38)
[2020-04-23] MEDS: diazePAM 5 MG TABLET PO ×2 (09:40→18:39)
--- NOTE | 2020-04-23 11:25 | PT.IPTN ---
Current Diagnoses Acute posthemorrhagic anemia (04/21/20) Fracture of unspecified part of neck of left femur, initial encounter for closed fracture (04/21/20) Surgery Performed Operation Date: 04/21/20 20:00 Actual Procedures p ORIF Hip/DSH Cannulated Screws - Nata Terrazas MD Physical Therapy Treatment Note M2 PT-IP Current Condition Start: 04/22/20 13:05 Freq: NEEDED Status: Active Protocol: Document 04/22/20 11:51 DLM (Rec: 04/22/20 14:45 DLM [email or web address]) Physical Therapy Current Condition Current Condition Evaluation Date 04/22/20 Treatment Diagnosis left femur fx, ORIF with dynamic screw Onset Date 04/21/20 Weight Bearing Status Weight Bearing Status Partial Weight Bearing Allowed Weight Bearing Amount (enter % 50% on left LE for 4 weeks or #) (%) M3 PT-IP Subjective Start: 04/22/20 13:05 Freq: NEEDED Status: Active Protocol: Document 04/23/20 11:20 AW (Rec: 04/23/20 12:59 AW [id number]) Subjective Physical Therapy Visit Type Type Treatment Note Visit Start Time 10:49 Visit Stop Time 11:19 Total Visit Minutes 30 Number of MANAGER RESPIRATORY CARE Visits 0 Physical Therapy Visit Comments Patient Comments Pt willing to participate with PT Therapy Pain Assessment Pain When Pain Assessed During Mobility Pain Present Pain Present Pain Reported Location left anterior thigh and groin Intensity 2 Scale Used Numeric (0 - 10) Pain Management Techniques Apply Cold,Timing of Activity with Medications M4 PT-IP Mobility and Gait Start: 04/22/20 13:05 Freq: NEEDED Status: Active Protocol: Document 04/23/20 11:20 AW (Rec: 04/23/20 12:59 AW [id number]) PT-Bed Mobility Assessment Supine to Sit Supine to Sit Standby Assistance Sit to Supine Sit to Supine Standby Assistance Scooting Scooting to Edge of Bed Independent PT-Transfer Assessment Sit to and From Stand Sit to and from Stand Standby Assistance,Contact Guard Assistance,Use of Upper Extremities Equipment Transfer Assistive Device Gait Belt,Front Wheeled Walker Transfers Transfer Destination Bed Transfer Technique Stand Step Pivot Transfer Ability Level of Assist Standby Assistance,Contact Guard Assistance Comments Mobility Comments Pt had already been up to the chair once before therapy. He was resting comfortably in bed as PT arrived. He was able to complete supine to sit SBA with use of his RLE to lift the LLE out of the bed. He completed sit to stand CGA using FWW and ambulated in the halls with good weightbearing through his BUE during LLE stance. He ambulated SBA ~90 feet with FWW, demonstrating good step-to patterning to assist with 50% weightbearing. Gait Assessment Gait Gait Assistance Required: Contact Guard Assist Distance (Feet) 90 Able to Maintain Weight Bearing Status Yes During Gait Assistive Devices Assistive Device Gait Belt,Front Wheeled Walker Gait Deviations General Gait Pattern Antalgic,Decreased Stride Length,Decreased Feet Clearance,Step-to Gait Factors Limiting Gait Function Factors Limiting Gait Function Decreased Activity Tolerance, Decreased Strength,Pain Comments Gait Comments See mobility comments. M5 PT-IP Objective Assessments Start: 04/22/20 13:05 Freq: NEEDED Status: Active Protocol: Document 04/22/20 11:51 DLM (Rec: 04/22/20 14:45 DLM [email or web address]) Orientation Orientation/Cognition Level of Alertness Alert Orientation Name,Age,Birthday,Month,Date, Year,Day of Week,Place, Situation Language Function Ability No Deficits Noted Safety Awareness Understands Safety Issues Memory Description No Deficits Noted Gross Range of Motion Upper Extremity ROM Assessment Within Functional Limits Lower Extremity ROM Assessment Right Impaired Impairments pain limited hip motions and knee flexion greater than 90 degrees Strength Upper Extremity Strength Assessment Within Functional Limits Lower Extremity Strength Assessment Left Impaired Hip flexion 2+/5 Knee ext 3+/5 Ankle DF 4+/5, mild soreness reported in ankle Coordination Assessment Gross Coordination Gross Coordination WNL Sensation Assessment Sensation Gross Sensation WNL Muscle Tone Muscle Tone WNL Yes M6 PT-IP Treatment Start: 04/22/20 13:05 Freq: NEEDED Status: Active Protocol: Document 04/23/20 11:20 AW (Rec: 04/23/20 12:59 AW [id number]) Physical Therapy Treatment Exercises Exercises Ankle Pumps,Quad Sets Education Education Provided Precautions,Weight Bearing Status,Safety Other Treatments Other Treatment Performed Provided passive adductor stretch in supine to address groin pain. M7 PT-IP Assessment and Plan Start: 04/22/20 13:05 Freq: NEEDED Status: Active Protocol: Document 04/23/20 11:20 AW (Rec: 04/23/20 12:59 AW [id number]) PT Summary Assessment and Plan Potential Rehabilitation Potential Excellent Status of Condition at Evaluation Stable Summary Impairments Pain,ROM,Strength,Balance,Bed Mobility,Transfers,Gait, Activity Tolerance Progress Towards Goals Progressing Toward Goals Assessment Summary Pt tolerating mobility well. He now states he and his are considering a several-week stay in [place] in order to avoid travel in the short term. Will continue to follow and assist with planning for discharge environment. Goals Bed Mobility Goal Independent Transfer Goal Independent,Front Wheeled Walker Gait Goal Independent,Front Wheel Walker Gait Distance 100 feet Other Goals up and down 6 steps with rail and crutch, 50% WB on left Days to Meet Goals 3 Frequency of Treatment Frequency Of Treatment Twice a Day Treatment Plan Physical Therapy Treatment Plan Bed Mobility Training,Transfer Training,Gait Training, Therapeutic Exercise,Balance Retraining,Post Op Education, Discharge Planning,Hot or Cold Pack,Neuromuscular Re-ed Other Recommendations and Next Treatment help problem solve home Focus situation, FWW and crutches for d/c; assess pain response to AM treatment; progress gait training with FWW as able Recommendations To Nursing Amount of Assist Needed Standby Assistance Discharge Recommendations Transportation Needs at Discharge Private Vehicle
--- NOTE | 2020-04-23 11:36 | CM.DPC ---
DCP: continued: EMR reviewed and noted that OT did see pt yesterday late afternoon. Dr. Terrazas was here this morning to see pt and indicates d/c likely later today or tomorrow and with an appt set up for pt in her office on April 26. Met with pt as he was starting his PT session with [facility]. Introduced self and role. Pt said that he and his are still looking at option of staying on longer vs flying back to [place] on April 29. He states regardless of when he returns there he and his will have to be in quarantine for 14 days once he does arrive. Pt confirms he will need a FWW and wishes to have it issues to him from the consignment closet/PT dept. Order is obtained for same and given to [facility] to process. P: will continue to follow prn
[2020-04-23] MEDS: ENOXAPARIN 40 MG/0.4 ML SYRINGE SUBCUT (14:34)
--- NOTE | 2020-04-23 14:50 | PC.NURSE ---
Pt planning to stay additional day, pain control issues after increased ambulation with staff Friday. Alert ambulating in room with SBA. and FWW. Oxy DIazepam given for muscle spasms. UP with PT.
[2020-04-23 15:41] VITALS: BP 103/51; PULSE 95; RESP 18; TEMP 36.3; O2SAT 97
--- NOTE | 2020-04-23 15:45 | PT.IPTN ---
Current Diagnoses Acute posthemorrhagic anemia (04/21/20) Fracture of unspecified part of neck of left femur, initial encounter for closed fracture (04/21/20) Surgery Performed Operation Date: 04/21/20 20:00 Actual Procedures p ORIF Hip/DSH Cannulated Screws - Nata Terrazas MD Physical Therapy Treatment Note M2 PT-IP Current Condition Start: 04/22/20 13:05 Freq: NEEDED Status: Active Protocol: Document 04/22/20 11:51 DLM (Rec: 04/22/20 14:45 DLM [email or web address]) Physical Therapy Current Condition Current Condition Evaluation Date 04/22/20 Treatment Diagnosis left femur fx, ORIF with dynamic screw Onset Date 04/21/20 Weight Bearing Status Weight Bearing Status Partial Weight Bearing Allowed Weight Bearing Amount (enter % 50% on left LE for 4 weeks or #) (%) M3 PT-IP Subjective Start: 04/22/20 13:05 Freq: NEEDED Status: Active Protocol: Document 04/23/20 14:58 LJ (Rec: 04/23/20 15:45 LJ [id number]) Subjective Physical Therapy Visit Type Type Treatment Note Visit Start Time 14:58 Visit Stop Time 15:34 Total Visit Minutes 36 Physical Therapy Visit Comments Patient Comments Pt willing to participate with PT Therapy Pain Assessment Pain When Pain Assessed During Mobility Pain Present Pain Present Pain Reported M4 PT-IP Mobility and Gait Start: 04/22/20 13:05 Freq: NEEDED Status: Active Protocol: Document 04/23/20 14:58 LJ (Rec: 04/23/20 15:45 LJ [id number]) PT-Bed Mobility Assessment Supine to Sit Supine to Sit Standby Assistance Sit to Supine Sit to Supine Standby Assistance Scooting Scooting to Edge of Bed Independent PT-Transfer Assessment Sit to and From Stand Sit to and from Stand Standby Assistance,Contact Guard Assistance,Use of Upper Extremities Equipment Transfer Assistive Device Gait Belt,Front Wheeled Walker Transfers Transfer Destination Chair Transfer Technique pt ambulated w/ FWW Transfer Ability Level of Assist Standby Assistance,Contact Guard Assistance Comments Mobility Comments Pt resting in bed. SBA for all bed mobility. SBA-CGA for transfer from bed to standing. Pt ambulated in lhallway and returned to chair. SBA for sitting into chair. No cues needed. Gait Assessment Gait Gait Assistance Required: Standby Assistance,Contact Guard Assist Distance (Feet) 300 Able to Maintain Weight Bearing Status Yes During Gait Assistive Devices Assistive Device Gait Belt,Front Wheeled Walker Gait Deviations General Gait Pattern Antalgic,Decreased Stride Length,Decreased Feet Clearance,Step-to Gait Factors Limiting Gait Function Factors Limiting Gait Function Decreased Activity Tolerance, Decreased Strength,Pain Comments Gait Comments Pt ambulated in hallway ~300 CGA-SBA with multiple standing rest breaks. C/O pain in groin area. Pt required cues for using UEs without shrugging shoulders and posture alignment. Able to manage FWW adequately and adhere to WB precautions during ambulation. M5 PT-IP Objective Assessments Start: 04/22/20 13:05 Freq: NEEDED Status: Active Protocol: Document 04/22/20 11:51 DLM (Rec: 04/22/20 14:45 DLM [email or web address]) Orientation Orientation/Cognition Level of Alertness Alert Orientation Name,Age,Birthday,Month,Date, Year,Day of Week,Place, Situation Language Function Ability No Deficits Noted Safety Awareness Understands Safety Issues Memory Description No Deficits Noted Gross Range of Motion Upper Extremity ROM Assessment Within Functional Limits Lower Extremity ROM Assessment Right Impaired Impairments pain limited hip motions and knee flexion greater than 90 degrees Strength Upper Extremity Strength Assessment Within Functional Limits Lower Extremity Strength Assessment Left Impaired Hip flexion 2+/5 Knee ext 3+/5 Ankle DF 4+/5, mild soreness reported in ankle Coordination Assessment Gross Coordination Gross Coordination WNL Sensation Assessment Sensation Gross Sensation WNL Muscle Tone Muscle Tone WNL Yes M6 PT-IP Treatment Start: 04/22/20 13:05 Freq: NEEDED Status: Active Protocol: Document 04/23/20 14:58 LJ (Rec: 04/23/20 15:45 [id number]) Physical Therapy Treatment Exercises Exercises Ankle Pumps,Gluteal Sets,Quad Sets Education Education Provided Precautions,Weight Bearing Status,Safety M7 PT-IP Assessment and Plan Start: 04/22/20 13:05 Freq: NEEDED Status: Active Protocol: Document 04/23/20 14:58 XIAO (Rec: 04/23/20 15:45 [id number]) PT Summary Assessment and Plan Potential Rehabilitation Potential Excellent Status of Condition at Evaluation Stable Summary Impairments Pain,ROM,Strength,Balance,Bed Mobility,Transfers,Gait, Activity Tolerance Progress Towards Goals Progressing Toward Goals Assessment Summary Pt greatly advanced his walking distance and able to tolerate increased activity. Pt and plan to stay in hotel in [facility] then transfer to [facility] in [place]. Do not anticipate stairs in either location. Goals Bed Mobility Goal Independent Transfer Goal Independent,Front Wheeled Walker Gait Goal Independent,Front Wheel Walker Gait Distance 100 feet Other Goals no stairs anticipated until they return home. Unknown how long they will remain in Days to Meet Goals 3 Frequency of Treatment Frequency Of Treatment Twice a Day Treatment Plan Physical Therapy Treatment Plan Bed Mobility Training,Transfer Training,Gait Training, Therapeutic Exercise,Balance Retraining,Post Op Education, Discharge Planning,Hot or Cold Pack,Neuromuscular Re-ed Other Recommendations and Next Treatment help problem solve home Focus situation, FWW and crutches for d/c; assess pain response to PM treatment; progress gait training with FWW as able Recommendations To Nursing Amount of Assist Needed Standby Assistance Discharge Recommendations PT Discharge Recommendations Home with Assistance Transportation Needs at Discharge Private Vehicle
[2020-04-23] MEDS: FERROUS SULFATE 325 MG TABLET PO (17:19)
[2020-04-23 19:57] VITALS: BP 133/65; PULSE 74; RESP 18; TEMP 37; O2SAT 98
[2020-04-23 23:57] VITALS: BP 128/70; PULSE 80; RESP 18; TEMP 36.4; O2SAT 100
[2020-04-24] VITALS (7 sets, daily range): BP systolic 119–151; BP diastolic 58–72; PULSE 66–89; RESP 15–18; TEMP 36.5–36.9; O2SAT 98–100
[2020-04-24] MEDS: diazePAM 5 MG TABLET PO ×4 (02:33→21:08)
[2020-04-24 05:31] LABS: Add Manual Diff / Slide Review NO; Basophils Absolute Auto 100 /uL (0-100); Basophils Percent Auto 0.9 % (0-2); Eosinophils Absolute Auto 100 /uL (0-450); Eosinophils Percent Auto 1.4 % (2-4); Hemoglobin 7.4 g/dL (13.5-17.5); Lymphocytes Absolute Auto 1300 /uL (1100-4500); Lymphocytes Percent Auto 15.6 % (25-40); Mean Corpuscular HGB Conc 32.2 % (30-36); Mean Corpuscular Hemoglobin 25.7 PG (26-34); Mean Corpuscular Volume 79.9 fL (80-100); Monocytes Absolute Auto 800 /uL (0-900); Monocytes Percent Auto 9.7 % (3-14); Neutrophils Absolute Auto 5800 /uL (1500-7000); Neutrophils Percent Auto 72.4 % (50-75); Platelet Count 289 X10^3/uL (150-400); Red Blood Cell Count 2.86 X10^6/uL (4.5-5.9); Red Cell Distribution Width 17.7 % (11.6-14.8); White Blood Cell Count 8.1 X10^3/uL (4.5-11.0)
[2020-04-24 05:33] LABS: Hematocrit 22.9 % (41-53)
--- NOTE | 2020-04-24 07:25 | PM.PNPO.1 ---
Subjective Subjective Date Patient Seen: 04/24/20 Time Patient Seen: 07:26 Interval history: Postop day 3 left intertrochanteric hip fracture status post sliding hip screw. Patient's feeling all right this morning. Has been working on his in bed exercises. Cramping is better with the Valium. Pain variable between a 3 and 7/10. Medications are helping. Worked with physical therapy. Patient is not from the area and they are working on their travel plans. Denies dizziness Exam Vital Signs (past 8 hours): - 04/23/20 23:57 04/24/20 04:53 Temperature 97.5 F L Pulse Rate 80 Respiratory Rate 18 Blood Pressure 128/70 Pulse Oximetry 100 98 Oxygen Delivery Method Room Air Oxygen Flow Rate 0 Narrative Exam Narrative: General exam is alert oriented male lying in bed no acute distress Respiratory unlabored on room CV exam regular rate and rhythm Musculoskeletal exam: Left lower extremity with dressing in place clean dry and intact. Thigh is soft calf is soft. Demonstrates active dorsiflexion plantar flexion of the ankle. Is able to perform a heel slide with some difficulty but improving. Brisk capillary refill. Palpable dorsalis pedis pulse Objective Labs Result Diagrams: 04/24/20 04:45 04/21/20 13:20 Labs: Laboratory Results - last 24 hr 04/24/20 04:45 WBC 8.1 RBC 2.86 L Hgb 7.4 L Hct 22.9 L MCV 79.9 L MCH 25.7 L MCHC 32.2 RDW 17.7 H Plt Count 289 Neut % (Auto) 72.4 Lymph % (Auto) 15.6 L Maury % (Auto) 9.7 Eos % (Auto) 1.4 L Baso % (Auto) 0.9 Neut # (Auto) 5800 Lymph # (Auto) 1300 Maury # (Auto) 800 Eos # (Auto) 100 Baso # (Auto) 100 Assessment & Plan Post-op Assessment and plan (1) Acute blood loss anemia: (2) Closed hip fracture: Postoperative Procedures: Procedures Operation Date: 04/21/20 20:00 Actual Procedures Side Surgeon p ORIF Hip/DSH Cannulated Screws Nata Terrazas MD postop day 3 ORIF left intertrochanteric hip fracture. Weightbear as tolerated/50% left lower extremity. Continue working with physical therapy for mobilization. Postoperative acute blood loss anemia. Hemoglobin 7.4 today down from 7.7. Vital signs are stable. Patient does have history of chronic anemia and was about 10 pre surgery. He is on iron. Currently maintain below 7 as transfusion threshold. Will hold Lovenox this morning recheck tomorrow a.m.. If stable consider discharge. On Lovenox Discussed patient is from [place] and did have plans to fly back on April 29. Discussed recommendation to stay locally and delay a flight for ease of travel and reduced risk of thrombosis. They do likely has some placed the can stay in [place] until the end of April. Discussed delaying travel 4 weeks would be optimal. In that case would plan follow-up in my office 10-14 days after surgery for staple removal and x-rays-and possible additional follow-up prior to their travel. Will do Lovenox for DVT prophylaxis at discharge Quality VTE Deep Vein Thrombosis/Pulmonary Embolism Present on Admission: No
[2020-04-24] MEDS: FERROUS SULFATE 325 MG TABLET PO ×2 (09:29→18:31)
[2020-04-24] MEDS: OXYCODONE IR 5 MG TABLET PO ×4 (09:30→21:08)
[2020-04-24] MEDS: CALCIUM CARBONATE 600 MG TABLET 1200 MG PO (09:30)
[2020-04-24] MEDS: ACETAMINOPHEN 325 MG TABLET 975 MG PO ×3 (09:30→21:07)
[2020-04-24] MEDS: lisinopriL 10 MG TABLET PO (09:30)
[2020-04-24] MEDS: DOCUSATE 100 MG CAPSULE PO ×2 (09:31→21:07)
[2020-04-24] MEDS: SODIUM CHLORIDE 0.9% FLUSH 10 ML IV (09:31)
[2020-04-24] MEDS: CHOLECALCIFEROL (VITAMIN D3) 1,000 UNIT TABLET 2000 UNIT PO (09:31)
[2020-04-24] MEDS: polyethylene glycoL 3350 17 GM POWD.PACK PO (09:31)
--- NOTE | 2020-04-24 10:31 | PT.IPTN ---
Current Diagnoses Acute posthemorrhagic anemia (04/21/20) Fracture of unspecified part of neck of left femur, initial encounter for closed fracture (04/21/20) Surgery Performed Operation Date: 04/21/20 20:00 Actual Procedures p ORIF Hip/DSH Cannulated Screws - Nata Terrazas MD Physical Therapy Treatment Note M2 PT-IP Current Condition Start: 04/22/20 13:05 Freq: NEEDED Status: Active Protocol: Document 04/22/20 11:51 DLM (Rec: 04/22/20 14:45 DLM [email or web address]) Physical Therapy Current Condition Current Condition Evaluation Date 04/22/20 Treatment Diagnosis left femur fx, ORIF with dynamic screw Onset Date 04/21/20 Weight Bearing Status Weight Bearing Status Partial Weight Bearing Allowed Weight Bearing Amount (enter % 50% on left LE for 4 weeks or #) (%) M3 PT-IP Subjective Start: 04/22/20 13:05 Freq: NEEDED Status: Active Protocol: Document 04/24/20 10:07 CLB (Rec: 04/24/20 11:38 CLB [id number]) Subjective Physical Therapy Visit Type Type Treatment Note Visit Start Time 10:07 Visit Stop Time 10:31 Total Visit Minutes 27 Notes present Number of BANK RECONCILIATOR Visits 2 Physical Therapy Visit Comments Patient Comments Pt willing to participate with PT Therapy Pain Assessment Pain When Pain Assessed During Mobility Pain Present Pain Present Pain Reported Location left anterior thigh and groin Intensity 2 Scale Used Numeric (0 - 10) Pain Management Techniques Apply Cold,Timing of Activity with Medications M4 PT-IP Mobility and Gait Start: 04/22/20 13:05 Freq: NEEDED Status: Active Protocol: Document 04/24/20 10:07 CLB (Rec: 04/24/20 11:38 CLB [id number]) PT-Bed Mobility Assessment Supine to Sit Supine to Sit Standby Assistance Scooting Scooting to Edge of Bed Independent PT-Transfer Assessment Sit to and From Stand Sit to and from Stand Standby Assistance,Contact Guard Assistance,Use of Upper Extremities Equipment Transfer Assistive Device Gait Belt,Front Wheeled Walker Transfers Transfer Destination Toilet Transfer Technique pt ambulated w/ FWW Transfer Ability Level of Assist Standby Assistance,Contact Guard Assistance Comments Mobility Comments Pt required SBA for bed mobility and CGA for sit<> stand. Pt ambulated with FWW/ CGA ~150ft with several rest breaks due to shoulder fatigue . Pt left in BR with call light. OT and present. Gait Assessment Gait Gait Assistance Required: Standby Assistance,Contact Guard Assist Distance (Feet) 150 Able to Maintain Weight Bearing Status Yes During Gait Assistive Devices Assistive Device Gait Belt,Front Wheeled Walker Gait Deviations General Gait Pattern Antalgic,Decreased Stride Length,Decreased Feet Clearance,Step-to Gait Factors Limiting Gait Function Factors Limiting Gait Function Decreased Activity Tolerance, Decreased Strength,Pain Comments Gait Comments Pt ambulated ~150ft w/FWW/SBA- CGA with several standing rest breaks. Pt is steady and has good safety awareness. M5 PT-IP Objective Assessments Start: 04/22/20 13:05 Freq: NEEDED Status: Active Protocol: Document 04/22/20 11:51 DLM (Rec: 04/22/20 14:45 DLM [email or web address]) Orientation Orientation/Cognition Level of Alertness Alert Orientation Name,Age,Birthday,Month,Date, Year,Day of Week,Place, Situation Language Function Ability No Deficits Noted Safety Awareness Understands Safety Issues Memory Description No Deficits Noted Gross Range of Motion Upper Extremity ROM Assessment Within Functional Limits Lower Extremity ROM Assessment Right Impaired Impairments pain limited hip motions and knee flexion greater than 90 degrees Strength Upper Extremity Strength Assessment Within Functional Limits Lower Extremity Strength Assessment Left Impaired Hip flexion 2+/5 Knee ext 3+/5 Ankle DF 4+/5, mild soreness reported in ankle Coordination Assessment Gross Coordination Gross Coordination WNL Sensation Assessment Sensation Gross Sensation WNL Muscle Tone Muscle Tone WNL Yes M6 PT-IP Treatment Start: 04/22/20 13:05 Freq: NEEDED Status: Active Protocol: Document 04/23/20 14:58 LJ (Rec: 04/23/20 15:45 LJ [id number]) Physical Therapy Treatment Exercises Exercises Ankle Pumps,Gluteal Sets,Quad Sets Education Education Provided Precautions,Weight Bearing Status,Safety M7 PT-IP Assessment and Plan Start: 04/22/20 13:05 Freq: NEEDED Status: Active Protocol: Document 04/24/20 10:07 CLB (Rec: 04/24/20 11:38 CLB [id number]) PT Summary Assessment and Plan Potential Rehabilitation Potential Excellent Status of Condition at Evaluation Stable Summary Impairments Pain,ROM,Strength,Balance,Bed Mobility,Transfers,Gait, Activity Tolerance Progress Towards Goals Progressing Toward Goals Assessment Summary Pt continues to to tolerate mobility with good safety awareness and steady gait requiring standing rest breaks . Pt requiring SBA for bed mobility, CGA for sit<>stand and and gait. Goals Bed Mobility Goal Independent Transfer Goal Independent,Front Wheeled Walker Gait Goal Independent,Front Wheel Walker Gait Distance 100 feet Other Goals no stairs anticipated until they return home. Unknown how long they will remain in Days to Meet Goals 3 Frequency of Treatment Frequency Of Treatment Twice a Day Treatment Plan Physical Therapy Treatment Plan Bed Mobility Training,Transfer Training,Gait Training, Therapeutic Exercise,Balance Retraining,Post Op Education, Discharge Planning,Hot or Cold Pack,Neuromuscular Re-ed Other Recommendations and Next Treatment help problem solve home Focus situation, FWW and crutches for d/c; assess pain response to PM treatment; progress gait training with FWW as able Recommendations To Nursing Amount of Assist Needed Standby Assistance Discharge Recommendations PT Discharge Recommendations Home with Assistance Transportation Needs at Discharge Private Vehicle
--- NOTE | 2020-04-24 11:03 | OT.IP.TRT ---
Current Diagnoses Acute posthemorrhagic anemia (04/21/20) Fracture of unspecified part of neck of left femur, initial encounter for closed fracture (04/21/20) Surgery Performed Operation Date: 04/21/20 20:00 Actual Procedures p ORIF Hip/DSH Cannulated Screws - Nata Terrazas MD Occupational Therapy Treatment Note M2 OT-IP Current Condition Start: 04/22/20 17:07 Freq: Status: Active Protocol: Document 04/22/20 17:07 CGR (Rec: 04/22/20 17:33 CGR [email or web address]) Occupational Therapy Current Condition Current Condition Evaluation Date 04/22/20 Treatment Diagnosis Fall with L hip fx s/p 04/21 sliding hip screw ORIF Diagnosis Onset Date 04/21/20 Weight Bearing Status Weight Bearing Status Partial Weight Bearing Allowed Weight Bearing Amount (enter % 50% or #) (%) M3 OT- IP Subjective and Pain Start: 04/22/20 17:07 Freq: Status: Active Protocol: Document 04/24/20 11:44 CGR (Rec: 04/24/20 11:54 CGR [email or web address]) OT- Subjective Occupational Therapy Visit Type Type Progress Note Visit Start Time 10:30 Visit Stop Time 11:03 Total Visit Minutes 33 Notes Pt completing time with P.T. when OT entered OT Pain Assessment Pain When Pain Assessed During Mobility Pain Present Pain Present Pain Reported Location left anterior thigh and groin Intensity 3 Management Techniques Modification of Treatment,Re- positioning,Timing of Activity with Medications M4 OT- IP ADL's Start: 04/22/20 17:07 Freq: Status: Active Protocol: Document 04/24/20 11:44 CGR (Rec: 04/24/20 11:54 CGR [email or web address]) OT [id number] Comments OT Self-Feeding Comments not meal time OT ADL-Grooming General Evaluation Grooming Ability Independent Areas Needing Assistance Face Washing Comments OT Grooming Comments in shower OT ADL-Oral Care Comments Oral Care Comments not performed OT ADL-Dressing General Eval Upper Body Dressing Ability Independent Lower Body Dressing Ability Moderate Assistance Comments OT Dressing Comments Pt was able to don sock to the RLE but needed assist to the LLE. OT ADL-Toileting General Evaluation Toileting Ability Independent Comments OT Toileting Comments on BSc over toilet to make a higher surface. OT ADL-Bathing Bathing Type Bathing Type Shower General Evaluation Bathing Ability Minimal Assistance Areas Needing Assistance Wash/Dry Back,Wash/Dry Lower Extremities Devices Bathing Equipment Hand Held Shower Sprayer, Shower Chair with Arms,Grab Bars Comments OT Bathing Comments Pt showered in walk in shower. Needed VC for entering sideways. M5 OT- IP IADL's Start: 04/22/20 17:07 Freq: Status: Active Protocol: Document 04/22/20 17:07 CGR (Rec: 04/22/20 17:33 CGR [email or web address]) OT-Instrumental Activities of Daily Living Deficits IADL Deficits Identified No Deficits Home Safety Awareness Awareness of Need for Assistance at Home Good Awareness Ability to Problem Solve Emergency Able to Problem Solve Situations Medication Management Medication Management No Deficits Identified Money Management Money Management No Deficits Identified Meal Preparation Meal Preparation Caregiver Provides Assist Entry Tech Entry Tech Caregiver Provides Assist Driving Driving Comments Pt is an active driver wheelchair at baseline but understands that his will have to do all driving til approved by an MD. M6 OT- IP Functional Cognition Start: 04/22/20 17:07 Freq: Status: Active Protocol: Document 04/22/20 17:07 CGR (Rec: 04/22/20 17:33 CGR [email or web address]) Cognitive Factors Limiting Selfcare Function Cognitive Ability Level of Alertness Alert Patient Orientation Name,Age,Birthday,Month,Date, Year,Day of Week,Place, Situation Attention Span Ability Capable of Focused Attention, Capable of Sustained Attention Ability to Follow Commands Able to Follow Multi-Step Commands Memory Description No Deficits Noted Safety Awareness No Deficits Noted Problem Solving Ability No deficits Noted OT- Vision and Hearing OT- Hearing Assessment OT- Hearing Assessment WFL OT- Vision Assessment Visual Acuity WFL Visual Attentiveness WFL Occular Pursuits WFL Visual Convergence WFL M7 OT- IP Mobility and Balance Start: 04/22/20 17:07 Freq: Status: Active Protocol: Document 04/24/20 11:44 CGR (Rec: 04/24/20 11:54 CGR [email or web address]) OT- Bed Mobility Assessment Sit to Supine Sit to Supine Assist Minimal Assistance Scooting Scooting to Edge of Bed Independent Scooting Up and Down in Bed Standby Assistance OT-Transfer Assessment Sit to and From Stand Sit to and from Stand Contact Guard Assistance Transfers Transfer Ability Contact Guard Assistance Technique Transfer Destination Bed,Bedside Commode,Shower Stall,Toilet Transfer Technique Stand Step Pivot Devices Transfer Assistive Devices Gait Belt,Front Wheeled Walker OT- Gait Assessment Gait Gait Assistance Required: Contact Guard Assist Assistive Devices Assistive Device Gait Belt,Front Wheeled Walker Comments Gait Ability Comments mobility around the room. OT- Balance Assessment Sitting Balance and Reactions Static Sitting Balance Ability Good Dynamic Sitting Balance Ability Fair M8 OT- IP Objective Assessments Start: 04/22/20 17:07 Freq: Status: Active Protocol: Document 04/22/20 17:07 CGR (Rec: 04/22/20 17:33 CGR [email or web address]) OT Gross Range of Motion Upper Extremity Range of Motion Assessment Within Functional Limits OT Strength Upper Extremity Strength Assessment Within Functional Limits Comments Strength Comments 5/5 OT- Coordination Assessment Upper Extremity Finger to Nose Test Within Functional Limits Finger Tapping Test Within Functional Limits OT-Muscle Tone Assessment Muscle Tone WNL Yes OT Sensation Assessment Edema Edema Present Edema Comments Noted to the LLE M9 OT- IP Assessment and Plan Start: 04/22/20 17:07 Freq: Status: Active Protocol: Document 04/24/20 11:44 CGR (Rec: 04/24/20 11:54 CGR [email or web address]) OT Summary Assessment and Plan Potential Rehabilitation Potential Excellent Analytic Complexity at Evaluation Low Summary OT Impairments Pain,Balance,Functional Mobility,Dressing,Toileting, Bathing,Toilet Transfers, Shower Transfers,Activity Tolerance Progress Towards Goals Progressing Toward Goals,Slow Progress due to Pain Assessment Summary Pt is progressing well but with increased pain at this time. Pt will benefit from continued OT services for home safety. Goals Grooming Goal Independent Dressing Goal Independent Toileting Goal Independent Bathing Goal Independent Toilet Transfer Goal Independent Shower Transfer Goal Independent Days to Meet Goals 2 Frequency of Treatment Frequency Of Treatment Once a Day Treatment Plan OT Treatment Plan ADL Training,Functional Mobility,Patient/Family Education,Discharge Planning Other Treatment Recommendations and Next ADLs around the room for home Treatment Focus safety and retention. Discharge Recommendations OT Discharge Recommendations Home with Assistance Home Equipment Needs tub transfer bench, walker, hip kit (provided) Transportation Needs at Discharge Private Vehicle
--- NOTE | 2020-04-24 15:26 | PT.IPTN ---
Current Diagnoses Acute posthemorrhagic anemia (04/21/20) Fracture of unspecified part of neck of left femur, initial encounter for closed fracture (04/21/20) Surgery Performed Operation Date: 04/21/20 20:00 Actual Procedures p ORIF Hip/DSH Cannulated Screws - Nata Terrazas MD Physical Therapy Treatment Note M2 PT-IP Current Condition Start: 04/22/20 13:05 Freq: NEEDED Status: Active Protocol: Document 04/22/20 11:51 DLM (Rec: 04/22/20 14:45 DLM [email or web address]) Physical Therapy Current Condition Current Condition Evaluation Date 04/22/20 Treatment Diagnosis left femur fx, ORIF with dynamic screw Onset Date 04/21/20 Weight Bearing Status Weight Bearing Status Partial Weight Bearing Allowed Weight Bearing Amount (enter % 50% on left LE for 4 weeks or #) (%) M3 PT-IP Subjective Start: 04/22/20 13:05 Freq: NEEDED Status: Active Protocol: Document 04/24/20 15:13 AW (Rec: 04/24/20 15:26 AW [id number]) Subjective Physical Therapy Visit Type Type Treatment Note Visit Start Time 14:38 Visit Stop Time 15:11 Total Visit Minutes 33 Number of HOLLOW TILE PARTITION ERECTOR Visits 0 Physical Therapy Visit Comments Patient Comments Pt willing to participate with PT Therapy Pain Assessment Pain When Pain Assessed During Mobility Pain Present Pain Present Pain Reported Location left anterior thigh and groin Intensity 3 Scale Used Numeric (0 - 10) Pain Management Techniques Apply Cold,Timing of Activity with Medications M4 PT-IP Mobility and Gait Start: 04/22/20 13:05 Freq: NEEDED Status: Active Protocol: Document 04/24/20 15:13 AW (Rec: 04/24/20 15:26 AW [id number]) PT-Bed Mobility Assessment Supine to Sit Supine to Sit Standby Assistance Scooting Scooting to Edge of Bed Independent PT-Transfer Assessment Sit to and From Stand Sit to and from Stand Standby Assistance,Contact Guard Assistance,Use of Upper Extremities Equipment Transfer Assistive Device Gait Belt,Front Wheeled Walker Transfers Transfer Destination Chair Transfer Technique Stand Step Pivot Transfer Ability Level of Assist Contact Guard Assistance Comments Mobility Comments Pt continues to require SBA for bed mobility. He moves slowly and deliberately to guide his operative leg out of bed. CGA for sit to stand from bed in lowest position and low chairs in the hallway and in pt's room. He participated in gait training in the hallway before returning to the room and transferring to the chair CGA and cues for sequencing. Pt was positioned reclined in the chair with fresh ice packs applied to lateral thigh/ operative wound and to left knee. Call light was placed within reach and pt verbalized agreement to use the call light for all mobility needs. Gait Assessment Gait Gait Assistance Required: Contact Guard Assist Distance (Feet) 180 Able to Maintain Weight Bearing Status Yes During Gait Assistive Devices Assistive Device Gait Belt,Front Wheeled Walker Gait Deviations General Gait Pattern Antalgic,Decreased Stride Length,Decreased Feet Clearance,Step-to Gait Factors Limiting Gait Function Factors Limiting Gait Function Decreased Activity Tolerance, Decreased Strength,Pain Comments Gait Comments Pt ambulated in the halls with FWW and SBA to CGA with increasing distance/fatigue. Pt took multiple standing rest breaks and one seated rest break at the senior living point. He demonstrated good awareness of his 50% PWB status. M5 PT-IP Objective Assessments Start: 04/22/20 13:05 Freq: NEEDED Status: Active Protocol: Document 04/22/20 11:51 DLM (Rec: 04/22/20 14:45 DLM [email or web address]) Orientation Orientation/Cognition Level of Alertness Alert Orientation Name,Age,Birthday,Month,Date, Year,Day of Week,Place, Situation Language Function Ability No Deficits Noted Safety Awareness Understands Safety Issues Memory Description No Deficits Noted Gross Range of Motion Upper Extremity ROM Assessment Within Functional Limits Lower Extremity ROM Assessment Right Impaired Impairments pain limited hip motions and knee flexion greater than 90 degrees Strength Upper Extremity Strength Assessment Within Functional Limits Lower Extremity Strength Assessment Left Impaired Hip flexion 2+/5 Knee ext 3+/5 Ankle DF 4+/5, mild soreness reported in ankle Coordination Assessment Gross Coordination Gross Coordination WNL Sensation Assessment Sensation Gross Sensation WNL Muscle Tone Muscle Tone WNL Yes M6 PT-IP Treatment Start: 04/22/20 13:05 Freq: NEEDED Status: Active Protocol: Document 04/24/20 15:13 AW (Rec: 04/24/20 15:26 AW [id number]) Physical Therapy Treatment Education Education Provided Weight Bearing Status,Safety Other Treatments Other Treatment Performed Standing LLE hip abduction and adduction through partial ROM using walker for support. M7 PT-IP Assessment and Plan Start: 04/22/20 13:05 Freq: NEEDED Status: Active Protocol: Document 04/24/20 15:13 AW (Rec: 04/24/20 15:26 AW [id number]) PT Summary Assessment and Plan Potential Rehabilitation Potential Excellent Status of Condition at Evaluation Stable Summary Impairments Pain,ROM,Strength,Balance,Bed Mobility,Transfers,Gait, Activity Tolerance Progress Towards Goals Progressing Toward Goals Assessment Summary Pt is planning to stay in an [facility] for the first few days after discharge and then move to a [facility] for the month of April prior to flying back to [place]. He plans to follow up with ortho here in [place]. Pt is tolerating mobility well. Will coordinate caregiver training with pt's in the AM. Goals Bed Mobility Goal Independent Transfer Goal Independent,Front Wheeled Walker Gait Goal Independent,Front Wheel Walker Gait Distance 100 feet Other Goals no stairs anticipated until they return home. Unknown how long they will remain in [place] Days to Meet Goals 3 Frequency of Treatment Frequency Of Treatment Twice a Day Treatment Plan Physical Therapy Treatment Plan Bed Mobility Training,Transfer Training,Gait Training, Therapeutic Exercise,Balance Retraining,Post Op Education, Discharge Planning,Hot or Cold Pack,Neuromuscular Re-ed Other Recommendations and Next Treatment FWW for discharge; CGT with pt Focus 's in the AM Recommendations To Nursing Amount of Assist Needed Standby Assistance Discharge Recommendations PT Discharge Recommendations Home with Assistance, Outpatient PT Transportation Needs at Discharge Private Vehicle
--- NOTE | 2020-04-24 15:40 | CM.DPC ---
DCP Cont: Spoke to patient's , Christie. She is staying at the [facility] here in [place]. She originally had set up a handi-cap room for patient, but patient was not discharged today. She stated that she has to switch rooms. was concerned about patient taking a taxi there, and if there would be a safer transport. Let her know that this protective services case worker could call [employer], and check on prices and availability. Let her know that standard low runs approximately $85.00. Called [facility], and spoke to dispatcher, Landon. Confirmed that they can escort patient to his room as well, and confirmed standard fee of approximately $85.00. Originally set up cigar packer and picker time for 11:00, but was inquiring if afternoon could be possible. Set up time of 1500 for tomorrow. Let Landon at [facility] know that if changes occur, since patient not being discharged tomorrow, will let him know. , Christie, updated on transportation time, and fee. She is also going to be going to [employer] to try to rent a vehicle earlier, for their original day to rent was going to be . P: DCP to continue to follow, and will be available for any needs. Patient may be discharged tomorrow if stable, and cigar packer and picker has already been arranged. Francia Hammer RN/Analytics Intern
[2020-04-25] MEDS: OXYCODONE IR 5 MG TABLET PO ×4 (01:42→14:33)
[2020-04-25 02:00] VITALS: BP 142/61; PULSE 71; RESP 18; TEMP 36.7; O2SAT 95
[2020-04-25] MEDS: diazePAM 5 MG TABLET PO ×2 (03:13→09:15)
[2020-04-25 05:11] LABS: Add Manual Diff / Slide Review NO; Basophils Absolute Auto 100 /uL (0-100); Basophils Percent Auto 0.8 % (0-2); Eosinophils Absolute Auto 200 /uL (0-450); Eosinophils Percent Auto 2.2 % (2-4); Hemoglobin 7.6 g/dL (13.5-17.5); Lymphocytes Absolute Auto 1300 /uL (1100-4500); Mean Corpuscular HGB Conc 32.2 % (30-36); Mean Corpuscular Hemoglobin 25.8 PG (26-34); Mean Corpuscular Volume 79.9 fL (80-100); Monocytes Absolute Auto 600 /uL (0-900); Monocytes Percent Auto 9.2 % (3-14); Neutrophils Absolute Auto 4900 /uL (1500-7000); Neutrophils Percent Auto 69.8 % (50-75); Platelet Count 323 X10^3/uL (150-400); Red Blood Cell Count 2.95 X10^6/uL (4.5-5.9)
[2020-04-25 05:20] LABS: Hematocrit 23.6 % (41-53)
--- NOTE | 2020-04-25 07:30 | PM.DS.1 ---
History of Present Illness History of Present Illness Chief complaint: GLF,left hip pain Narrative: Tyler is a 69-year-old male visiting from [place]. He was on a week-long [employer] fishing and shellfish expedition when he fell approximately this morning. He states despite the fall the boat continued to participate in [place] season and he finally made it back to shore approximately 6 hours later. He endorses left hip pain acute onset at the time of his fall. States he has had some minor arthritic hip pain but nothing significant in the past. No previous injuries. 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 He is here on vacation with his . Right now there plan flight home is April 29. He endorses muscle spasms and pain but no other extremity injuries. Pain is better controlled with rest and medications. Pain medication in the ER has helped him significantly. Denies loss of consciousness Discharge Providers Provider Date of admission: 04/21/20 14:59 Discharge Date: 04/25/20 Consults: 04/22/20 02:29 Consult to Discharge Planning Routine Comment: Consult to Physical Therapy Evaluate & Treat Comment: wabt up to 50% WB on Left -- use assistive devices Physician Instructions: Evaluate and Treat Consult to Respiratory Therapy Evaluate & Treat Comment: Physician Instructions: Evaluate and treat 04/22/20 10:01 Consult to Occupational Therapy Evaluate & Treat Comment: Physician Instructions: Evaluate and treat 04/23/20 11:27 Consult to Discharge Planning Routine Comment: FWW at d/c: per PT recommendation Discharge provider: Nata Montano MD Summary Hospital Course Discharge Diagnosis: Left intertrochanteric hip fracture Hospital Course: Patient was admitted to the hospital on the date of injury. Underwent open reduction internal fixation of the left intertrochanteric hip fracture on 04/21/2020. Patient had a preoperative chronic anemia. Postoperatively the patient had acute blood loss anemia. His vital signs remained stable and he was content treated with continued monitoring. On postop day 2 3 and 4. On postop day 4 his hemoglobin was stabilized. Vital signs remained stabilized and he had been able to mobilize with physical therapy. He was determined stable for discharge. He is weightbear as tolerated approximately 50% weight-bearing on the left lower extremity with assistive devices. Pain was controlled on oxycodone with some Valium for muscle spasms. Status at Discharge Cognitive/behavioral status at discharge: oriented Functional status at discharge: uses cane/walker Overall status at discharge: patient is progressing back to baseline Time Spent with Patient Time spent: Less than 30 minutes Exam Vital Signs (past 8 hours): - 04/25/20 02:00 Temperature 98.0 F Pulse Rate 71 Respiratory Rate 18 Blood Pressure 142/61 H Pulse Oximetry 95 Oxygen Delivery Method Room Air Oxygen Flow Rate 0 Narrative Exam Narrative: General exam alert oriented male in no acute distress HEENT exam normocephalic atraumatic Respiratory exam unlabored on room air CV exam regular rate and rhythm Musculoskeletal exam: Left lower extremity shows dressing in place. Dressing is changed Aquacel dressing chelsi in place no drainage no redness no erythema no signs or symptoms of infection. Mild ecchymosis around the lateral thigh. Thigh compartments and lower leg compartments are soft. Demonstrates active 5/5 dorsiflexion plantar flexion of the ankle. Stable to initiate heel slides and hip flexion. Independently rolls himself over in bed. Does complain of soreness as expected in the hip. Objective Labs Result Diagrams: 04/25/20 04:39 04/21/20 13:20 Labs: Laboratory Results - last 24 hr 04/25/20 04:39 WBC 7.0 RBC 2.95 L Hgb 7.6 L Hct 23.6 L MCV 79.9 L MCH 25.8 L MCHC 32.2 RDW 18.0 H Plt Count 323 Neut % (Auto) 69.8 Lymph % (Auto) 18.0 L [place] % (Auto) 9.2 Eos % (Auto) 2.2 Baso % (Auto) 0.8 Neut # (Auto) 4900 Lymph # (Auto) 1300 [place] # (Auto) 600 Eos # (Auto) 200 Baso # (Auto) 100 Discharge Plan Discharge Plan Patient Disposition: Home Discharge orders & Medications Prescriptions: New acetaminophen 325 mg Tablet 975 mg PO TID Qty: 30 RF: 0 calcium carbonate 600 mg calcium (1,500 mg) Tablet 1,200 mg PO DAILY Qty: 60 RF: 0 docusate sodium [DOK] 100 mg Capsule 100 mg PO BID Qty: 60 RF: 0 diazepam 5 mg Tablet 5 mg PO Q6HR PRN (Reason: Spasms) Qty: 30 RF: 0 cholecalciferol (vitamin D3) [Vitamin D3] 25 mcg (1,000 unit) Tablet 2,000 unit PO DAILY Qty: 30 RF: 0 ferrous sulfate 325 mg (65 mg iron) Tablet 325 mg PO BIDWM Qty: 60 RF: 0 oxycodone 5 mg Tablet 5 - 15 mg PO Q3HR PRN (Reason: Pain, Moderate (4-6)) Qty: 60 RF: 0 enoxaparin 40 mg/0.4 mL syringe 40 mg SUBCUT Q24H Qty: 8 RF: 0 Continued lisinopril 10 mg Tablet 10 mg PO DAILY RF: 0 Discontinued oxycodone 5 mg Tablet 5 mg PO Q6H PRN (Reason: Pain (Scale Score 4-6)) RF: 0 Stivarga 40 mg Tablet 80 mg PO DAILY RF: 0 Follow up/Referrals: Nata Montano MD [Physician] - (call [facility] for follow up with Dr. montano on 05/03 or 05/04 -- office [address] [place] [id number] ) Diet/Activity/Treatments Diet: Diet as Tolerated and Regular Activity: Weightbear as tolerated with assistive devices-approximately 50% weight-bearing on left lower extremity. Ambulate with assistive devices minimum 3 times a day. Do exercises taught by physical therapy foot and ankle pumps heel slides. Administer Lovenox for blood clot prophylaxis once daily starting the day after discharge. He will get his dose of Lovenox for today from the hospital. Take stool softeners to prevent constipation. If still having constipation [id number] MiraLax is available or suppository. Other treatments: Plan will be follow up in orthopedic clinic next week either May 03 or May 04 both are available clinic days at the [facility] office and [place] to see Dr. Montano. At this time the incision chelsi will be removed and new x-rays taken. And will assess for travel safety Skin/Wound/Dressing Care Report to your healthcare provider any signs of infection, such as:: chills, fever, night sweats, increased pain, unusual drainage and unusual redness Dressing: keep dressing clean and dry, aqaucell dressing is water resistant to shower. if dressing saturated may change to clean gauze Visit Report/Discharge Packet Instructions: How to Prevent Falls, DI for Open Reduction Internal Fixation Surgery Quality VTE Deep Vein Thrombosis/Pulmonary Embolism Present on Admission: No
[2020-04-25 08:00] VITALS: BP 129/72; PULSE 74; RESP 15; TEMP 36.8; O2SAT 95
[2020-04-25] MEDS: ACETAMINOPHEN 325 MG TABLET 975 MG PO ×2 (09:14→14:32)
[2020-04-25] MEDS: FERROUS SULFATE 325 MG TABLET PO (09:14)
[2020-04-25] MEDS: polyethylene glycoL 3350 17 GM POWD.PACK PO (09:15)
[2020-04-25] MEDS: ENOXAPARIN 40 MG/0.4 ML SYRINGE SUBCUT (09:15)
[2020-04-25] MEDS: lisinopriL 10 MG TABLET PO (09:15)
[2020-04-25] MEDS: DOCUSATE 100 MG CAPSULE PO (09:15)
[2020-04-25] MEDS: CHOLECALCIFEROL (VITAMIN D3) 1,000 UNIT TABLET 2000 UNIT PO (09:15)
[2020-04-25] MEDS: CALCIUM CARBONATE 600 MG TABLET 1200 MG PO (09:16)
[2020-04-25] MEDS: SODIUM CHLORIDE 0.9% FLUSH 10 ML IV (09:17)
--- NOTE | 2020-04-25 09:45 | PT.IPTN ---
Current Diagnoses Acute posthemorrhagic anemia (04/21/20) Fracture of unspecified part of neck of left femur, initial encounter for closed fracture (04/21/20) Surgery Performed Operation Date: 04/21/20 20:00 Actual Procedures p ORIF Hip/DSH Cannulated Screws - Nata Terrazas MD Physical Therapy Treatment Note M2 PT-IP Current Condition Start: 04/22/20 13:05 Freq: NEEDED Status: Active Protocol: Document 04/22/20 11:51 DLM (Rec: 04/22/20 14:45 DLM [id number]) Physical Therapy Current Condition Current Condition Evaluation Date 04/22/20 Treatment Diagnosis left femur fx, ORIF with dynamic screw Onset Date 04/21/20 Weight Bearing Status Weight Bearing Status Partial Weight Bearing Allowed Weight Bearing Amount (enter % 50% on left LE for 4 weeks or #) (%) M3 PT-IP Subjective Start: 04/22/20 13:05 Freq: NEEDED Status: Active Protocol: Document 04/25/20 09:40 AW (Rec: 04/25/20 12:40 AW [id number]) Subjective Physical Therapy Visit Type Type Treatment Note Visit Start Time 09:00 Visit Stop Time 09:39 Total Visit Minutes 39 Notes , Christie, present for caregiver training Number of HOME CARE NURSE Visits 0 Physical Therapy Visit Comments Patient Comments Pt willing to participate with PT Patient Goals Pt plans to discharge to [facility] Pain Assessment Pain When Pain Assessed During Mobility Pain Present Pain Present Denied Pain Location Left Hip Intensity 4 Scale Used Numeric (0 - 10) Pain Management Techniques Apply Cold,Timing of Activity with Medications M4 PT-IP Mobility and Gait Start: 04/22/20 13:05 Freq: NEEDED Status: Active Protocol: Document 04/25/20 09:40 AW (Rec: 04/25/20 12:40 AW [id number]) PT-Bed Mobility Assessment Supine to Sit Supine to Sit Standby Assistance Sit to Supine Sit to Supine Standby Assistance Scooting Scooting to Edge of Bed Independent Scooting Up and Down in Bed Independent PT-Transfer Assessment Sit to and From Stand Sit to and from Stand Standby Assistance,Contact Guard Assistance,Use of Upper Extremities Equipment Transfer Assistive Device Gait Belt,Front Wheeled Walker Transfers Transfer Destination Chair,Toilet Transfer Technique pt ambulated wtih FWW Transfer Ability Level of Assist Standby Assistance Comments Mobility Comments Pt completed bed mobility SBA using assist of his non operative leg to guide his operative leg out of the bed. Pt's was instructed in donning the gait belt which she was able to do with verbal cues. then provided CGA for sit to stand. Pt ambulated in the halls 140 feet with frequent standing rest breaks. He stated he felt more stiff since it was his first time out of bed today. PT instructed the pt's in appropriate guarding position and technique. She was able to provide SBA to CGA as needed for ambulation with FWW. Upon return to the room, pt transferred to the toilet with toilet riser sitting over the seat. Pt's observed for placement of the seat and was able to provide verbal cues as needed during transfer. Pt then stood with FWW and transferred back to bed, citing fatigue from PT session . Pt was positioned in the bed with call light and all needs within reach, bed alarm armed for safety. Gait Assessment Gait Gait Assistance Required: Standby Assistance,Contact Guard Assist Distance (Feet) 140 Able to Maintain Weight Bearing Status Yes During Gait Assistive Devices Assistive Device Gait Belt,Front Wheeled Walker Gait Deviations General Gait Pattern Antalgic,Decreased Stride Length,Decreased Feet Clearance,Step-to Gait Factors Limiting Gait Function Factors Limiting Gait Function Decreased Activity Tolerance, Decreased Strength,Pain Comments Gait Comments Pt's provided ambulation assist with appropriate guarding. See mobility comments. Pt continues to use step-to gait pattern for 50% PWB LLE. M5 PT-IP Objective Assessments Start: 04/22/20 13:05 Freq: NEEDED Status: Active Protocol: Document 04/22/20 11:51 DLM (Rec: 04/22/20 14:45 DLM [email or web address]) Orientation Orientation/Cognition Level of Alertness Alert Orientation Name,Age,Birthday,Month,Date, Year,Day of Week,Place, Situation Language Function Ability No Deficits Noted Safety Awareness Understands Safety Issues Memory Description No Deficits Noted Gross Range of Motion Upper Extremity ROM Assessment Within Functional Limits Lower Extremity ROM Assessment Right Impaired Impairments pain limited hip motions and knee flexion greater than 90 degrees Strength Upper Extremity Strength Assessment Within Functional Limits Lower Extremity Strength Assessment Left Impaired Hip flexion 2+/5 Knee ext 3+/5 Ankle DF 4+/5, mild soreness reported in ankle Coordination Assessment Gross Coordination Gross Coordination WNL Sensation Assessment Sensation Gross Sensation WNL Muscle Tone Muscle Tone WNL Yes M6 PT-IP Treatment Start: 04/22/20 13:05 Freq: NEEDED Status: Active Protocol: Document 04/25/20 09:40 AW (Rec: 04/25/20 12:40 AW [id number]) Physical Therapy Treatment Education Education Provided Weight Bearing Status,Safety Other Treatments Other Treatment Performed Pt's participated in caregiver training. M7 PT-IP Assessment and Plan Start: 04/22/20 13:05 Freq: NEEDED Status: Active Protocol: Document 04/25/20 09:40 AW (Rec: 04/25/20 12:40 AW [id number]) PT Summary Assessment and Plan Potential Rehabilitation Potential Excellent Status of Condition at Evaluation Stable Summary Impairments Pain,ROM,Strength,Balance,Bed Mobility,Transfers,Gait, Activity Tolerance Progress Towards Goals Progressing Toward Goals Assessment Summary Pt to discharge today to [facility] where he will stay until ortho follow up appointment. His spouse is anxious about discharge but pt is requiring very little assist. Reassured pt and spouse that pt is moving well and would benefit from short bouts of ambulation and continued ther ex 2-3 x/day. Dispensed and sized a FWW for pt to take with him. Will check in with the pt and spouse later this afternoon for any last-minute needs. Goals Bed Mobility Goal Independent Transfer Goal Independent,Front Wheeled Walker Gait Goal Independent,Front Wheel Walker Gait Distance 100 feet Other Goals no stairs anticipated until they return home. Days to Meet Goals 3 Frequency of Treatment Frequency Of Treatment Twice a Day Treatment Plan Physical Therapy Treatment Plan Bed Mobility Training,Transfer Training,Gait Training, Therapeutic Exercise,Balance Retraining,Post Op Education, Discharge Planning,Hot or Cold Pack,Neuromuscular Re-ed Other Recommendations and Next Treatment FWW for discharge; CGT with pt Focus 's in the AM Recommendations To Nursing Amount of Assist Needed 1 Person Assist Discharge Recommendations PT Discharge Recommendations Home with Assistance, Outpatient PT Transportation Needs at Discharge Private Vehicle,Wheelchair/ Cabulance
[2020-04-25 12:00] VITALS: BP 118/55; PULSE 77; RESP 16; TEMP 37.1; O2SAT 97
--- NOTE | 2020-04-25 12:13 | CM.DPC ---
DCP Cont: Patient's , Christie, had come by the care management office looking for this case finisher. She was frustrated, for she had to move rooms over at the [facility] to a non-handicapped room. She was concerned about the equipment that she needs when her goes there, for he is being discharged today. Was able to meet with patient's , and Ino Ac P.T. encouraged her [facility] she can get toilet riser. Patient will be leaving here with a FWW. Gave Judy-Marcel's address and phone number, as well as [employer]. Had Gisele, laboratory animal care veterinarian, call [facility] and confirm pharmacy picking technician for 1500 today. She mentioned that [facility] stated that they did not have him in the system. Let Gisele know that this case finisher spoke to Landon yesterday, at [facility], and set up appointment. She let them know, and they stated, the appointment did not get placed in their error. They were able to contact [facility], and they will pharmacy picking technician patient at 1500. They will also charge the same fee. Gave [facility]'s phone number as well. P: Patient is to be discharged home today. He will be staying at [facility] with his . He will follow up with orthopedic appointment. They both will then stay at [facility] in [place]. Francia Hammer RN/Spout Worker
--- NOTE | 2020-04-25 14:18 | OT.IPNOTE ---
When checked on pt in AM, pt states has no further questions for OT needs and just wanting to rest. Pt states good understanding for all needs and just feels that his is nervous about his situation, but states she is usually nervous in general. Pt's not in the room, notified nursing to call therapist if needed in case pt's had any last questions of concern. Just stopped by pt's room, pt asleep and not back yet.
--- NOTE | 2020-04-25 14:49 | PT-IP ANOTE ---
Met with the pt and his just prior to discharge to answer final questions about the hotel room set up and provide instructions on ther ex and level of activity for the next few days.
== END 2020-04-25 15:00 | disposition home or self-care (01) | DRG 481 ==
LOC: ED 14:09 → AC 15:00 → ICU 16:10
PROVIDERS: Admitting Provider Orthopaedic Surgery Foot and Ankle Surgery; Emergency Provider Emergency Medicine; Referring Provider Emergency Medicine; Visit Provider Orthopaedic Surgery Foot and Ankle Surgery
PROC: 0QS704Z Reposition Left Upper Femur with Internal Fixation Device, Open Approach (ICD-10-PCS; principal; 2020-04-21 20:00)
DX: S72.142A Displaced intertrochanteric fracture of left femur, initial encounter for closed fracture (principal); C49.A0 Gastrointestinal stromal tumor, unspecified site; D62 Acute posthemorrhagic anemia; I10 Essential (primary) hypertension; W19.XXXA Unspecified fall, initial encounter; Y92.814 Boat as the place of occurrence of the external cause
CPT/HCPCS: 36415; 71045; 73502; 76000; 80053; 81001; 82550; 84484; 85025; 85027; 87635; 87797; 93005; 94762; 96361; 96374; 96376; 97110; 97116; 97162; 97165; 97530; 97535; 99284; J0690; J1100; J1170; J1650; J2405; J2704; J3010